=== PATIENT | female | born 1930 | race African-American/Black ===

== ENCOUNTER 2017-04-04 17:37 | Inpatient (IN) | payer MEDICARE, OTHER ==
[~2017-04-04] VITALS: Ht 172.7 cm; Wt 87.3 kg
[~2017-04-04 17:37] MED LIST: AMLO10TA80 PO; ASPI-986 PO; FURO-152 PO; GABA-531 PO; LOSA100T14 PO; LOSA50TA20 PO; PRAV20TA57 PO; SPIR25TA4 PO; TRAM50TA3 PO
[2017-04-04 18:43] LABS: BASOPHILS % 0.3 % (0.0-2.0); EOSINOPHILS % 2.2 % (0.0-5.0); HEMATOCRIT. 35.2 % (36.0-48.0); HEMOGLOBIN. 11.8 g/dL (12.0-16.0); LYMPHOCYTES % 24.6 % (20.0-50.0); MEAN CORPUSCULAR HEMOGLOBIN 28.1 pg (28.0-32.0); MEAN CORPUSCULAR VOLUME 83.9 fL (81.0-99.0); MEAN PLATELET VOLUME 8.1 fl (7.4-10.4); MONOCYTES % 10.7 % (2.0-8.0); NEUTROPHILS % 62.2 % (40.0-76.0); PLATELET 208 x1000/uL (130-400); RED CELL DISTRIBUTION WIDTH 15.1 % (11.6-14.6)
[2017-04-04 18:47] LABS: CHLORIDE 107 mEq/L (98-107)
[2017-04-04 18:48] LABS: INR 1.1; PROTHROMBIN TIME 11.6 sec
[2017-04-04 18:54] LABS: CARBON DIOXIDE 27 mEq/L (21-32)
[2017-04-04 18:58] LABS: TROPONIN I 0.02 ng/mL (0.00-0.04)
[2017-04-04] MEDS ORDERED: ASPIRIN 81MG TABLET PO ONE (19:15)
[2017-04-04] MEDS ORDERED: FUROSEMIDE 40MG/4ML VIAL IV ONE (19:15)
[2017-04-04] MEDS ORDERED: ENOXAPARIN 100MG/ML SYR SUBCUT ONE (19:15)
[2017-04-04] MEDS ORDERED: HYDROCODONE/ACETAMINOPHEN 5/325MG TABLET PO ONE (23:15)
[2017-04-05] MEDS ORDERED: ZOLPIDEM TARTRATE 5MG TABLET PO PRN (01:45)
[2017-04-05] MEDS ORDERED: ACETAMINOPHEN 650MG/20.3ML UDC PO PRN (01:45)
[2017-04-05] MEDS ORDERED: MAGNESIUM HYDROXIDE 400MG/5ML 30ML UDC PO PRN (01:45)
[2017-04-05] MEDS ORDERED: FUROSEMIDE 40MG TABLET PO ONE (03:00)
[2017-04-05] MEDS: AMLODIPINE 10MG TABLET PO SCH (08:47)
[2017-04-05 09:10] LABS: CREATINE KINASE MB FRACTION 1.1 ng/mL (0.5-3.6); TROPONIN I 0.09 ng/mL (0.00-0.04)
[2017-04-05 15:41] LABS: CREATINE KINASE MB FRACTION 1.3 ng/mL (0.5-3.6); TROPONIN I 0.07 ng/mL (0.00-0.04)
[2017-04-05] MEDS ORDERED: ATROPINE SULFATE 1MG/ML VIAL IV PRN (16:30)
[2017-04-05] MEDS: LOSARTAN POTASSIUM 50 MG TABLET PO SCH (21:37)
[2017-04-05 23:09] LABS: CREATINE KINASE MB FRACTION 1.3 ng/mL (0.5-3.6); TROPONIN I 0.06 ng/mL (0.00-0.04)
[2017-04-06 06:24] LABS: BASOPHILS % 0.6 % (0.0-2.0); HEMATOCRIT. 36.2 % (36.0-48.0); LYMPHOCYTES % 28.7 % (20.0-50.0); MEAN CORPUSCULAR HEMOGLOBIN 28.2 pg (28.0-32.0); MEAN PLATELET VOLUME 8.3 fl (7.4-10.4); NEUTROPHILS % 56.7 % (40.0-76.0); PLATELET 180 x1000/uL (130-400); RED BLOOD CELL COUNT 4.26 mill/uL (4.2-5.4); RED CELL DISTRIBUTION WIDTH 15.1 % (11.6-14.6)
[2017-04-06] MEDS: AMLODIPINE 10MG TABLET PO SCH (08:31)
[2017-04-06] MEDS: LOSARTAN POTASSIUM 50 MG TABLET PO SCH ×2 (08:31→20:45)
[2017-04-06] MEDS ORDERED: LIDOCAINE HCL 1% 20ML VIAL (Pyxis) INJ ONE (11:17)
[2017-04-06] MEDS ORDERED: HYDROCORTISONE SOD SUCCINATE 250 MG/2 ML VIAL ONE (11:17)
[2017-04-06] MEDS ORDERED: GENTAMICIN SULF 40MG/ML 2ML VIAL ONE (11:17)
[2017-04-06] MEDS ORDERED: DIPHENHYDRAMINE 50MG/ML VIAL ONE (11:17)
[2017-04-06] MEDS ORDERED: FENTANYL CITRATE/PF 50MCG/ML 2ML VIAL ONE (11:17)
[2017-04-06] MEDS ORDERED: MIDAZOLAM HCL 2 MG/2 ML VIAL ONE (11:17)
[2017-04-06] MEDS ORDERED: FAMOTIDINE 20MG/2ML VIAL IV ONE (11:18)
[2017-04-06] MEDS ORDERED: IOHEXOL-300 100 ML BOTTLE ONE (11:33)
[2017-04-06] MEDS ORDERED: CEFAZOLIN 1000MG PREMIX 100 ML IV ONE (11:38)
[2017-04-06] MEDS: CEFAZOLIN 1000MG PREMIX 50 ML IV SCH (20:45)
[2017-04-06] MEDS: HYDROCODONE/ACETAMINOPHEN 5/325MG TABLET PO PRN (21:29)
[2017-04-07] MEDS: CEFAZOLIN 1000MG PREMIX 50 ML IV SCH (04:10)
[2017-04-07] MEDS: HYDROCODONE/ACETAMINOPHEN 5/325MG TABLET PO PRN (05:50)
[2017-04-07 06:19] LABS: BASOPHILS % 0.2 % (0.0-2.0); EOSINOPHILS % 0.2 % (0.0-5.0); HEMATOCRIT. 35.7 % (36.0-48.0); HEMOGLOBIN. 11.9 g/dL (12.0-16.0); LYMPHOCYTES % 13.7 % (20.0-50.0); MEAN CORPUSCULAR HEMOGLOBIN 28.2 pg (28.0-32.0); MEAN CORPUSCULAR VOLUME 84.6 fL (81.0-99.0); MEAN PLATELET VOLUME 8.9 fl (7.4-10.4); MONOCYTES % 10.9 % (2.0-8.0); PLATELET 186 x1000/uL (130-400); RED BLOOD CELL COUNT 4.22 mill/uL (4.2-5.4)
[2017-04-07] MEDS: LOSARTAN POTASSIUM 50 MG TABLET PO SCH (08:29)
[2017-04-07] MEDS: AMLODIPINE 10MG TABLET PO SCH (08:29)
[2017-04-07] MEDS ORDERED: FUROSEMIDE 20MG TABLET PO SCH (09:00)
[2017-04-07 17:48] VITALS: BP 146/56
[2017-08-10] MEDS ORDERED: POTA20TA82 PO (04:21)
== END 2017-04-07 17:50 | disposition home or self-care (01) | DRG 243 ==
LOC: ER 17:37 → SUPCPDRO 17:39 → 8WST 20:57 → ENRESERV 22:33 → 3WST 04-05 02:20
PROVIDERS: ADMIT Specialist; ATTEND Specialist
PROC: 0JH606Z Insertion of Pacemaker, Dual Chamber into Chest Subcutaneous Tissue and Fascia, Open Approach (ICD-10-PCS; principal; 2017-04-06)
PROC: 02H63JZ Insertion of Pacemaker Lead into Right Atrium, Percutaneous Approach (ICD-10-PCS; 2017-04-06)
PROC: 02HK3JZ Insertion of Pacemaker Lead into Right Ventricle, Percutaneous Approach (ICD-10-PCS; 2017-04-06)
PROC: B5171ZZ Fluoroscopy of Left Subclavian Vein using Low Osmolar Contrast (ICD-10-PCS; 2017-04-06)
DX: I49.5 Sick sinus syndrome (principal); I50.32 Chronic diastolic (congestive) heart failure; I11.0 Hypertensive heart disease with heart failure; F03.90 Unspecified dementia, unspecified severity, without behavioral disturbance, psychotic disturbance, mood disturbance, and anxiety; I50.42 Chronic combined systolic (congestive) and diastolic (congestive) heart failure; I49.3 Ventricular premature depolarization; E66.9 Obesity, unspecified; E78.5 Hyperlipidemia, unspecified; Z82.49 Family history of ischemic heart disease and other diseases of the circulatory system; Z87.891 Personal history of nicotine dependence; Z90.49 Acquired absence of other specified parts of digestive tract; Z90.710 Acquired absence of both cervix and uterus; Z68.29 Body mass index [BMI] 29.0-29.9, adult; Z91.041 Radiographic dye allergy status; Z88.8 Allergy status to other drugs, medicaments and biological substances; Z79.82 Long term (current) use of aspirin; Z79.899 Other long term (current) drug therapy; Z83.3 Family history of diabetes mellitus; I16.0 Hypertensive urgency; I44.0 Atrioventricular block, first degree; Z98.61 Coronary angioplasty status
CPT/HCPCS: 33208; 36415; 71010; 75820; 80048; 80053; 82550; 82553; 83735; 83880; 84443; 84484; 85025; 85610; 93005; 93306; 96374; 97162; 97535; 99291; A4565; C1785; C1892; C1894; C1898; J0690; J1200; J1580; J1650; J1720; J1940; J2250; J3010; J3490; J7050; Q9967

== ENCOUNTER 2017-08-31 08:06 | Inpatient (IN) | payer MEDICARE, OTHER ==
[~2017-08-31] VITALS: Ht 170.2 cm; Wt 82.8 kg
[~2017-08-31 08:06] MED LIST changes: +POTA20TA82 PO
[2017-08-31 08:54] LABS: BASOPHILS % 0.4 % (0.0-2.0); EOSINOPHILS % 1.7 % (0.0-5.0); HEMOGLOBIN. 12.1 g/dL (12.0-16.0); MEAN CORPUSCULAR HEMOGLOBIN 28.7 pg (28.0-32.0); MEAN CORPUSCULAR VOLUME 88.1 fL (81.0-99.0); MEAN PLATELET VOLUME 8.6 fl (7.4-10.4); MONOCYTES % 7.8 % (2.0-8.0); NEUTROPHILS % 67.1 % (40.0-76.0); PLATELET 194 x1000/uL (130-400)
[2017-08-31 09:01] LABS: INR 1.1; PROTHROMBIN TIME 11.8 sec (9.4-11.6)
[2017-08-31 09:10] LABS: CARBON DIOXIDE 28 mEq/L (21-32); CHLORIDE 109 mEq/L (98-107); TROPONIN I 0.03 ng/mL (0.00-0.04)
[2017-08-31] MEDS ORDERED: FUROSEMIDE 40MG/4ML VIAL IVP ONE (10:45)
[2017-08-31 15:17] VITALS: BP 150/83
[2017-08-31 15:29] VITALS: BP 150/83
[2017-08-31] MEDS: NITROGLYCERIN OINT 1GM/INCH UDPKT TD SCH (16:15)
[2017-08-31] MEDS: POTASSIUM CHLORIDE 20MEQ TABLET SR PO SCH (16:15)
[2017-08-31] MEDS: FUROSEMIDE 40MG/4ML VIAL IVP SCH (16:15)
[2017-08-31] MEDS ORDERED: MAGNESIUM HYDROXIDE 400MG/5ML 30ML UDC PO PRN (18:00)
[2017-08-31] MEDS ORDERED: ZOLPIDEM TARTRATE 5MG TABLET PO PRN (18:00)
[2017-08-31 20:00] VITALS: BP 145/88
[2017-08-31] MEDS: ENOXAPARIN 40MG/0.4ML SYR SUBCUT SCH ×2 (21:00→21:10)
[2017-08-31] MEDS: ATORVASTATIN CALCIUM 10MG TABLET PO SCH (21:09)
[2017-08-31] MEDS: AMLODIPINE 5MG TABLET PO SCH (21:10)
[2017-09-01] VITALS (8 sets, daily range): BP systolic 95–146; BP diastolic 51–91
[2017-09-01] MEDS: NITROGLYCERIN OINT 1GM/INCH UDPKT TD SCH ×4 (02:01→23:41)
[2017-09-01] MEDS: TRAMADOL 50MG TABLET PO PRN ×2 (02:45→14:10)
[2017-09-01 06:12] LABS: BASOPHILS % 0.6 % (0.0-2.0); HEMATOCRIT. 37.3 % (36.0-48.0); HEMOGLOBIN. 12.5 g/dL (12.0-16.0); LYMPHOCYTES % 27.2 % (20.0-50.0); MEAN CORPUSCULAR HEMOGLOBIN 29.3 pg (28.0-32.0); MEAN CORPUSCULAR VOLUME 87.3 fL (81.0-99.0); MEAN PLATELET VOLUME 8.6 fl (7.4-10.4); MONOCYTES % 9.8 % (2.0-8.0); NEUTROPHILS % 60.4 % (40.0-76.0); PLATELET 187 x1000/uL (130-400); RED BLOOD CELL COUNT 4.27 mill/uL (4.2-5.4); RED CELL DISTRIBUTION WIDTH 14.7 % (11.6-14.6)
[2017-09-01 07:14] LABS: CARBON DIOXIDE 27 mEq/L (21-32); CHLORIDE 107 mEq/L (98-107); TROPONIN I 0.04 ng/mL (0.00-0.04)
[2017-09-01] MEDS ORDERED: POTASSIUM CHLORIDE 20MEQ TABLET SR PO SCH (08:00)
[2017-09-01] MEDS ORDERED: ENOXAPARIN 30MG/0.3ML SYR SUBCUT SCH (09:00)
[2017-09-01] MEDS ORDERED: POTASSIUM CHLORIDE INJ 20 MEQ in DEXT 5% WATER 100 ML IV NR (09:00)
[2017-09-01] MEDS: PANTOPRAZOLE SODIUM 40 MG/VIAL IV SCH (09:31)
[2017-09-01] MEDS: LOSARTAN POTASSIUM 50 MG TABLET PO SCH (09:31)
[2017-09-01] MEDS: POTASSIUM CHLORIDE 20MEQ TABLET SR PO SCH ×2 (09:32→17:58)
[2017-09-01] MEDS: ASPIRIN 81MG EC TABLET PO SCH (09:32)
[2017-09-01] MEDS: AMLODIPINE 5MG TABLET PO SCH ×2 (09:32→21:00)
[2017-09-01] MEDS: SPIRONOLACTONE 25MG TABLET PO SCH (09:32)
[2017-09-01] MEDS: FUROSEMIDE 40MG/4ML VIAL IVP SCH ×2 (09:32→17:56)
[2017-09-01] MEDS: GABAPENTIN 300MG CAPSULE PO SCH ×2 (09:52→17:57)
[2017-09-01] MEDS ORDERED: HEPARIN SODIUM 1,000 UNIT/1ML VIAL IV ONE (10:19)
[2017-09-01] MEDS ORDERED: NICARDIPINE 100MCG/ML 10ML VIAL (CATH LAB) IV ONE (10:19)
[2017-09-01] MEDS ORDERED: NITROGLYCERIN 50MCG/ML 10ML VIAL (CATH LAB) IV ONE (10:19)
[2017-09-01] MEDS ORDERED: HEPARIN 1,000 UNITS PREMIX 0 ML IV ONE (12:06)
[2017-09-01] MEDS ORDERED: IODIXANOL 320MG/ML 100 ML BOTTLE IV ONE (14:47)
[2017-09-01] MEDS ORDERED: FENTANYL CITRATE/PF 50MCG/ML 2ML VIAL ONE (14:48)
[2017-09-01] MEDS ORDERED: MIDAZOLAM HCL 2 MG/2 ML VIAL ONE (14:48)
[2017-09-01] MEDS ORDERED: DIPHENHYDRAMINE 50MG/ML VIAL ONE (14:55)
[2017-09-01] MEDS ORDERED: FAMOTIDINE 20MG/2ML VIAL IV ONE (14:58)
[2017-09-01] MEDS ORDERED: HYDROCORTISONE SOD SUCCINATE 250 MG/2 ML VIAL ONE (15:00)
[2017-09-01] MEDS ORDERED: ATROPINE SULFATE 1MG/10ML SYR IV PRN (15:45)
[2017-09-01] MEDS ORDERED: ACETAMINOPHEN 325MG TABLET PO PRN (15:45)
[2017-09-01] MEDS: ACETAMINOPHEN 325MG TABLET PO PRN ×2 (18:03→23:41)
[2017-09-01] MEDS ORDERED: ONDANSETRON HCL 4MG/2ML VIAL IV PRN (20:15)
[2017-09-01] MEDS: ENOXAPARIN 40MG/0.4ML SYR SUBCUT SCH (22:15)
[2017-09-01] MEDS: ATORVASTATIN CALCIUM 10MG TABLET PO SCH (22:15)
[2017-09-02] VITALS (11 sets, daily range): BP systolic 94–133; BP diastolic 38–73
[2017-09-02 06:25] LABS: BASOPHILS % 0.1 % (0.0-2.0); HEMATOCRIT. 43.2 % (36.0-48.0); HEMOGLOBIN. 14.5 g/dL (12.0-16.0); LYMPHOCYTES % 9.3 % (20.0-50.0); MEAN CORPUSCULAR HEMOGLOBIN 29.5 pg (28.0-32.0); MEAN CORPUSCULAR VOLUME 87.9 fL (81.0-99.0); MEAN PLATELET VOLUME 9.2 fl (7.4-10.4); MONOCYTES % 5.6 % (2.0-8.0); PLATELET 225 x1000/uL (130-400); RED BLOOD CELL COUNT 4.91 mill/uL (4.2-5.4); RED CELL DISTRIBUTION WIDTH 14.7 % (11.6-14.6)
[2017-09-02] MEDS: PANTOPRAZOLE SODIUM 40 MG/VIAL IV SCH (08:50)
[2017-09-02] MEDS: FUROSEMIDE 40MG/4ML VIAL IVP SCH (08:50)
[2017-09-02] MEDS: GABAPENTIN 300MG CAPSULE PO SCH ×2 (08:50→17:48)
[2017-09-02] MEDS: POTASSIUM CHLORIDE 20MEQ TABLET SR PO SCH (08:50)
[2017-09-02] MEDS: ASPIRIN 81MG EC TABLET PO SCH (08:51)
[2017-09-02] MEDS ORDERED: POTASSIUM CHLORIDE 20MEQ TABLET SR PO SCH (09:00)
[2017-09-02] MEDS: SPIRONOLACTONE 25MG TABLET PO SCH (09:01)
[2017-09-02] MEDS: AMLODIPINE 5MG TABLET PO SCH (13:55)
[2017-09-02] MEDS: LOSARTAN POTASSIUM 50 MG TABLET PO SCH (13:55)
[2017-09-02] MEDS: NITROGLYCERIN OINT 1GM/INCH UDPKT TD SCH (13:56)
[2017-09-02] MEDS: ENOXAPARIN 40MG/0.4ML SYR SUBCUT SCH (21:28)
[2017-09-02] MEDS: ATORVASTATIN CALCIUM 10MG TABLET PO SCH (21:28)
[2017-09-02 21:29] LABS: BG CARBOXYHEMOGLOBIN 0.3 % (0.5-1.5); BG DEOXYHEMOGLOBIN 1.9 % (0.0-5.0); BG FRACTION INSPIRED OXYGEN 28; BG HCO3 ACT 22.8 mmol/L (22.0-26.0); BG METHEMOGLOBIN 0.4 % (0.0-1.5); BG OXYGEN SATURATION 98.1 % (92.0-98.5); BG OXYHEMOGLOBIN 97.4 % (94.0-97.0); BG PCO2 39.3 mmHg (35.0-45.0); BG PH 7.382 (7.350-7.450); BG PO2 118.3 mmHg (75.0-100.0); BG SAMPLE SITE RIGHT RADIAL; BG TOTAL HEMOGLOBIN 12.3 g/dL (12.0-18.0); BG VENT MODE NASAL CANNULA
[2017-09-02] MEDS: ACETAMINOPHEN 325MG TABLET PO PRN (22:39)
[2017-09-03] VITALS (13 sets, daily range): BP systolic 91–131; BP diastolic 41–84
[2017-09-03 07:15] LABS: CLARITY URINE CLEAR (CLEAR); COLOR URINE YELLOW (YELLOW); KETONES URINE NEGATIVE (NEGATIVE); LEUKOCYTE ESTERASE URINE TRACE (NEGATIVE); NITRITE URINE NEGATIVE (NEGATIVE); OCCULT BLOOD URINE NEGATIVE (NEGATIVE); PROTEIN URINE NEGATIVE (NEGATIVE); SPECIFIC GRAVITY URINE 1.018 (1.005-1.030); UROBILINOGEN URINE 0.2 E.U./dL (0.2-1.0)
[2017-09-03 07:19] LABS: BASOPHILS % 0.3 % (0.0-2.0); EOSINOPHILS % 1.4 % (0.0-5.0); HEMATOCRIT. 38.1 % (36.0-48.0); HEMOGLOBIN. 12.9 g/dL (12.0-16.0); LYMPHOCYTES % 33.6 % (20.0-50.0); MEAN CORPUSCULAR HEMOGLOBIN 29.4 pg (28.0-32.0); MEAN CORPUSCULAR VOLUME 87.1 fL (81.0-99.0); MEAN PLATELET VOLUME 8.9 fl (7.4-10.4); MONOCYTES % 8.6 % (2.0-8.0); NEUTROPHILS % 56.1 % (40.0-76.0); PLATELET 198 x1000/uL (130-400); RED BLOOD CELL COUNT 4.38 mill/uL (4.2-5.4); RED CELL DISTRIBUTION WIDTH 14.9 % (11.6-14.6)
[2017-09-03] MEDS ORDERED: MORPHINE SULFATE 2 MG/ML CPJ (NOT FOR IM USE) IV NR (07:50)
[2017-09-03] MEDS: NITROGLYCERIN OINT 1GM/INCH UDPKT TD SCH ×3 (08:00→19:22)
[2017-09-03] MEDS: ASPIRIN 81MG EC TABLET PO SCH (08:23)
[2017-09-03] MEDS: GABAPENTIN 300MG CAPSULE PO SCH ×2 (08:23→17:42)
[2017-09-03] MEDS ORDERED: SODIUM CHLORIDE 0.9% 500 ML IV ONE (10:35)
[2017-09-03] MEDS: ENOXAPARIN 40MG/0.4ML SYR SUBCUT SCH (20:52)
[2017-09-03] MEDS: ATORVASTATIN CALCIUM 10MG TABLET PO SCH (20:52)
[2017-09-04] VITALS (10 sets, daily range): BP systolic 98–135; BP diastolic 44–93
[2017-09-04 06:52] LABS: BASOPHILS % 0.6 % (0.0-2.0); EOSINOPHILS % 1.6 % (0.0-5.0); HEMATOCRIT. 39.7 % (36.0-48.0); HEMOGLOBIN. 13.4 g/dL (12.0-16.0); LYMPHOCYTES % 35.8 % (20.0-50.0); MEAN CORPUSCULAR HEMOGLOBIN 29.6 pg (28.0-32.0); MEAN CORPUSCULAR VOLUME 87.9 fL (81.0-99.0); MEAN PLATELET VOLUME 9.7 fl (7.4-10.4); MONOCYTES % 6.6 % (2.0-8.0); NEUTROPHILS % 55.4 % (40.0-76.0); PLATELET 131 x1000/uL (130-400); RED BLOOD CELL COUNT 4.52 mill/uL (4.2-5.4); RED CELL DISTRIBUTION WIDTH 14.9 % (11.6-14.6)
[2017-09-04 07:30] LABS: PHOSPHORUS 3.3 mg/dL (2.5-4.9)
[2017-09-04] MEDS ORDERED: SODIUM CHLORIDE 0.9% 10ML VIAL ONE (07:38)
[2017-09-04] MEDS: GABAPENTIN 300MG CAPSULE PO SCH ×2 (08:21→16:16)
[2017-09-04] MEDS: ASPIRIN 81MG EC TABLET PO SCH (08:21)
[2017-09-04] MEDS: NITROGLYCERIN OINT 1GM/INCH UDPKT TD SCH ×3 (08:21→16:17)
[2017-09-04] MEDS: NITROGLYCERIN 0.4MG TABLET SL SL PRN ×2 (12:43→13:04)
[2017-09-04] MEDS: TRAMADOL 50MG TABLET PO PRN (14:41)
[2017-09-04] MEDS: ACETAMINOPHEN 325MG TABLET PO PRN (16:27)
[2017-09-04] MEDS: ATORVASTATIN CALCIUM 10MG TABLET PO SCH (21:02)
[2017-09-06 05:22] LABS: COMPLEMENT C3 109 mg/dL (82-167)
== END 2017-09-04 21:25 | disposition home health service (06) | DRG 286 ==
LOC: ER 08:13 → 7WST 11:54 → ENRESERV 13:00 → 3WST 09-01 15:41
PROVIDERS: ADMIT Specialist; ATTEND Specialist
PROC: 4A023N7 Measurement of Cardiac Sampling and Pressure, Left Heart, Percutaneous Approach (ICD-10-PCS; principal; 2017-09-01)
PROC: B2111ZZ Fluoroscopy of Multiple Coronary Arteries using Low Osmolar Contrast (ICD-10-PCS; 2017-09-01)
DX: I13.0 Hypertensive heart and chronic kidney disease with heart failure and stage 1 through stage 4 chronic kidney disease, or unspecified chronic kidney disease (principal); J96.91 Respiratory failure, unspecified with hypoxia; N17.0 Acute kidney failure with tubular necrosis; I50.23 Acute on chronic systolic (congestive) heart failure; E87.1 Hypo-osmolality and hyponatremia; I42.9 Cardiomyopathy, unspecified; E87.6 Hypokalemia; I27.20 Pulmonary hypertension, unspecified; I25.5 Ischemic cardiomyopathy; N18.3 Chronic kidney disease, stage 3 (moderate); I34.0 Nonrheumatic mitral (valve) insufficiency; E78.5 Hyperlipidemia, unspecified; R07.1 Chest pain on breathing; I25.10 Atherosclerotic heart disease of native coronary artery without angina pectoris; I25.2 Old myocardial infarction; Z82.49 Family history of ischemic heart disease and other diseases of the circulatory system; Z87.891 Personal history of nicotine dependence; Z90.49 Acquired absence of other specified parts of digestive tract; Z90.710 Acquired absence of both cervix and uterus; Z95.0 Presence of cardiac pacemaker; Z88.8 Allergy status to other drugs, medicaments and biological substances; Z91.041 Radiographic dye allergy status; Z79.82 Long term (current) use of aspirin; Z79.899 Other long term (current) drug therapy
CPT/HCPCS: 36415; 36600; 71010; 71250; 74176; 76770; 78582; 80048; 80053; 81001; 82375; 82550; 82570; 82805; 83735; 83880; 83930; 83935; 84100; 84134; 84484; 84540; 85025; 85379; 85610; 86160; 93005; 93306; 93458; 96374; 97162; 99285; A4216; A9558; C1769; C1887; C1893; C9113; J1200; J1644; J1650; J1720; J1940; J2250; J2270; J3010; J3480; J3490; J7040; J7060; Q9967

== ENCOUNTER 2018-08-21 12:37 | Emergency (ER) | payer MEDICARE, MEDICAID ==
[~2018-08-21] VITALS: Ht 167.6 cm; Wt 80.0 kg
[~2018-08-21 12:37] MED LIST changes: -AMLO10TA80 PO; -ASPI-986 PO; -FURO-152 PO; -GABA-531 PO; -LOSA100T14 PO; -POTA20TA82 PO; -PRAV20TA57 PO; -SPIR25TA4 PO; -TRAM50TA3 PO
[2018-08-21 17:06] VITALS: BP 175/86
== END 2018-08-21 17:06 | disposition home or self-care (01) ==
LOC: ER 13:58
DX: S93.401A Sprain of unspecified ligament of right ankle, initial encounter (principal); I11.0 Hypertensive heart disease with heart failure; I50.9 Heart failure, unspecified; E78.00 Pure hypercholesterolemia, unspecified; I25.2 Old myocardial infarction; Z90.49 Acquired absence of other specified parts of digestive tract; Z90.710 Acquired absence of both cervix and uterus; Z98.890 Other specified postprocedural states; Z88.8 Allergy status to other drugs, medicaments and biological substances; Z91.041 Radiographic dye allergy status; W06.XXXA Fall from bed, initial encounter; Y93.89 Activity, other specified; Y92.89 Other specified places as the place of occurrence of the external cause; Y99.8 Other external cause status
CPT/HCPCS: 73610; 99283

== ENCOUNTER 2019-03-12 14:37 | Inpatient (IN) | payer MEDICARE, MEDICAID ==
[~2019-03-12] VITALS: Ht 162.6 cm; Wt 108.4 kg
[~2019-03-12 14:37] MED LIST changes: -LOSA50TA20 PO; +LOSA50TA41 PO
[2019-03-12] MEDS ORDERED: ONDANSETRON HCL 4MG/2ML INJ IV STA (15:57)
[2019-03-12] MEDS ORDERED: MORPHINE SULFATE 4 MG/ML CPJ (NOT FOR IM USE) IV STA (15:57)
[2019-03-12] MEDS ORDERED: VANCOMYCIN 1 G PREMIX 200 ML IV ONE (16:00)
[2019-03-12] MEDS ORDERED: SODIUM CHLORIDE 0.9% 1000ML BAG (SEPSIS BOLUS) IV ONE (16:00)
[2019-03-12] MEDS ORDERED: PIPERACILLIN/TAZ 3.375G PREMIX 50 ML IV ONE (16:00)
[2019-03-12 18:15] LABS: BASOPHILS % 0.2 % (0.0-2.0); HEMATOCRIT. 31.1 % (36.0-48.0); HEMOGLOBIN. 10.4 g/dL (12.0-16.0); LYMPHOCYTES % 13.8 % (20.0-50.0); MEAN CORPUSCULAR HEMOGLOBIN 29.7 pg (28.0-32.0); MEAN PLATELET VOLUME 7.8 fl (7.4-10.4); PLATELET 248 x1000/uL (130-400); RED BLOOD CELL COUNT 3.49 mill/uL (4.2-5.4); RED CELL DISTRIBUTION WIDTH 14.3 % (11.6-14.6)
[2019-03-12 18:23] LABS: CHLORIDE 101 mEq/L (98-107); INR 1.2; PROTHROMBIN TIME 12.2 sec (9.6-11.0)
[2019-03-12 22:00] VITALS: BP 126/72
[2019-03-13] VITALS: BP 138/48
[2019-03-13] MEDS ORDERED: NON FORMULARY PATIENT HOME MED XX SCH (00:15)
[2019-03-13] MEDS ORDERED: FURO-151 MT (00:37)
[2019-03-13] MEDS ORDERED: MULT-1146 MT (00:37)
[2019-03-13] MEDS ORDERED: OLME20TA13 MT (00:37)
[2019-03-13] MEDS ORDERED: POTA-79 MT (00:37)
[2019-03-13] MEDS ORDERED: NITR0.4T49 SL (00:37)
[2019-03-13] MEDS ORDERED: LISI-186 MT (00:37)
[2019-03-13] MEDS ORDERED: TRAM50TA3 MT (00:37)
[2019-03-13] MEDS ORDERED: SIMV20TA6 MT (00:37)
[2019-03-13] MEDS ORDERED: ASCO-339 MT (00:37)
[2019-03-13] MEDS ORDERED: APIX5TAB MT (00:37)
[2019-03-13] MEDS ORDERED: GABA-290 MT (00:37)
[2019-03-13] MEDS ORDERED: FLUT9.9S BOTHNSTRLS (00:37)
[2019-03-13] MEDS ORDERED: ACET-2178 PO (00:37)
[2019-03-13] MEDS ORDERED: MOM PO (00:37)
[2019-03-13] MEDS ORDERED: METO2.5T14 PO (00:37)
[2019-03-13] MEDS ORDERED: PIPERACILLIN/TAZ 3.375G PREMIX 50 ML IV SCH (01:00)
[2019-03-13] MEDS: TRAMADOL 50MG TABLET PO PRN ×2 (01:56→09:15)
[2019-03-13 04:00] VITALS: BP 112/54
[2019-03-13] MEDS: PIPERACILLIN/TAZ 2.25G PREMIX 50 ML IV SCH ×5 (04:28→20:55)
[2019-03-13 06:30] LABS: BASOPHILS % 0.3 % (0.0-2.0); EOSINOPHILS % 1.6 % (0.0-5.0); HEMATOCRIT. 27.8 % (36.0-48.0); HEMOGLOBIN. 9.5 g/dL (12.0-16.0); LYMPHOCYTES % 19.6 % (20.0-50.0); MEAN CORPUSCULAR HEMOGLOBIN 30.1 pg (28.0-32.0); MEAN CORPUSCULAR VOLUME 88.1 fL (81.0-99.0); MEAN PLATELET VOLUME 7.9 fl (7.4-10.4); MONOCYTES % 11.7 % (2.0-8.0); NEUTROPHILS % 66.8 % (40.0-76.0); PLATELET 227 x1000/uL (130-400); RED BLOOD CELL COUNT 3.15 mill/uL (4.2-5.4); RED CELL DISTRIBUTION WIDTH 13.9 % (11.6-14.6)
[2019-03-13] MEDS ORDERED: OLMESARTAN MEDOXOMIL MT SCH (09:00)
[2019-03-13] MEDS: GABAPENTIN 300MG CAPSULE PO SCH ×3 (09:15→16:46)
[2019-03-13] MEDS: LOSARTAN POTASSIUM 100 MG TABLET PO SCH (09:15)
[2019-03-13] MEDS: MULTIVITAMINS,THER W-MINERALS TABLET PO SCH (09:15)
[2019-03-13] MEDS: APIXABAN 2.5 MG TABLET PO SCH ×2 (09:16→16:45)
[2019-03-13] MEDS: ASCORBIC ACID 500 MG TABLET PO SCH ×2 (09:16→16:45)
[2019-03-13] MEDS ORDERED: POTASSIUM CHLORIDE 20MEQ TABLET SR PO NR (10:45)
[2019-03-13 12:00] VITALS: BP 137/43
[2019-03-13] MEDS ORDERED: FUROSEMIDE 40MG/4ML VIAL IVP SCH (16:15)
[2019-03-13 20:00] VITALS: BP 114/68
[2019-03-13] MEDS: ATORVASTATIN CALCIUM 10MG TABLET PO SCH (20:55)
[2019-03-13 23:00] VITALS: BP_SYST 123; BP_SYST 187; BP_DIAS 57; BP_DIAS 59
[2019-03-14 00:09] LABS: CLARITY URINE CLEAR (CLEAR); COLOR URINE YELLOW (YELLOW); KETONES URINE NEGATIVE (NEGATIVE); LEUKOCYTE ESTERASE URINE NEGATIVE (NEGATIVE); NITRITE URINE NEGATIVE (NEGATIVE); OCCULT BLOOD URINE NEGATIVE (NEGATIVE); PH URINE 5.5 (4.5-8.0); PROTEIN URINE NEGATIVE (NEGATIVE); SPECIFIC GRAVITY URINE 1.013 (1.005-1.030)
[2019-03-14] MEDS: PIPERACILLIN/TAZ 2.25G PREMIX 50 ML IV SCH ×3 (03:06→15:30)
[2019-03-14 04:00] VITALS: BP 140/45
[2019-03-14 06:42] LABS: HEMATOCRIT. 30.9 % (36.0-48.0); HEMOGLOBIN. 10.4 g/dL (12.0-16.0); MEAN PLATELET VOLUME 8.1 fl (7.4-10.4); PLATELET 250 x1000/uL (130-400); RED BLOOD CELL COUNT 3.47 mill/uL (4.2-5.4); RED CELL DISTRIBUTION WIDTH 13.9 % (11.6-14.6)
[2019-03-14 06:56] LABS: T4 FREE 1.3 ng/dL (0.76-1.46)
[2019-03-14 08:00] VITALS: BP 127/61
[2019-03-14] MEDS: APIXABAN 2.5 MG TABLET PO SCH ×2 (10:23→17:28)
[2019-03-14] MEDS: LOSARTAN POTASSIUM 100 MG TABLET PO SCH (10:24)
[2019-03-14] MEDS: ASCORBIC ACID 500 MG TABLET PO SCH ×2 (10:24→17:28)
[2019-03-14] MEDS: GABAPENTIN 300MG CAPSULE PO SCH ×3 (10:24→17:28)
[2019-03-14] MEDS: MULTIVITAMINS,THER W-MINERALS TABLET PO SCH (10:24)
[2019-03-14] MEDS: TRAMADOL 50MG TABLET PO PRN (10:40)
[2019-03-14 11:59] VITALS: BP 118/41
[2019-03-14 16:11] VITALS: BP 118/61
[2019-03-14] MEDS ORDERED: LEVOFLOXACIN 500MG TABLET PO NR (16:15)
[2019-03-14] MEDS ORDERED: FLUT9.9S16 NS (16:30)
[2019-03-14] MEDS ORDERED: ZINC220T PO (16:30)
[2019-03-14 18:00] LABS: PLATELET ESTIMATE NORMAL
[2019-03-14 20:00] VITALS: BP 112/51
[2019-03-14] MEDS: ATORVASTATIN CALCIUM 10MG TABLET PO SCH (21:12)
[2019-03-15] VITALS (7 sets, daily range): BP systolic 112–148; BP diastolic 49–72
[2019-03-15] MEDS: GABAPENTIN 300MG CAPSULE PO SCH ×3 (10:31→17:28)
[2019-03-15] MEDS: ASCORBIC ACID 500 MG TABLET PO SCH ×2 (10:31→17:28)
[2019-03-15] MEDS: MULTIVITAMINS,THER W-MINERALS TABLET PO SCH (10:31)
[2019-03-15] MEDS: APIXABAN 2.5 MG TABLET PO SCH ×2 (10:31→17:28)
[2019-03-15] MEDS: LOSARTAN POTASSIUM 100 MG TABLET PO SCH (10:31)
[2019-03-15] MEDS: LEVOFLOXACIN 250MG TABLET PO SCH (13:29)
[2019-03-15] MEDS: ATORVASTATIN CALCIUM 10MG TABLET PO SCH (21:33)
[2019-03-16] VITALS: BP 112/55
[2019-03-16 04:00] VITALS: BP 133/58
[2019-03-16 08:00] VITALS: BP 158/73
[2019-03-16] MEDS: APIXABAN 2.5 MG TABLET PO SCH ×2 (08:52→16:31)
[2019-03-16] MEDS: MULTIVITAMINS,THER W-MINERALS TABLET PO SCH (08:52)
[2019-03-16] MEDS: ASCORBIC ACID 500 MG TABLET PO SCH ×2 (08:52→16:31)
[2019-03-16] MEDS: GABAPENTIN 300MG CAPSULE PO SCH ×3 (08:52→16:31)
[2019-03-16] MEDS: LOSARTAN POTASSIUM 100 MG TABLET PO SCH (09:01)
[2019-03-16] MEDS: LEVOFLOXACIN 250MG TABLET PO SCH (11:08)
[2019-03-16 16:00] VITALS: BP 133/57
[2019-03-16 20:00] VITALS: BP 149/75
[2019-03-16] MEDS: ATORVASTATIN CALCIUM 10MG TABLET PO SCH (21:31)
[2019-03-16] MEDS: HYDROCODONE/ACETAMINOPHEN 5/325MG TABLET PO PRN (23:21)
[2019-03-17 04:00] VITALS: BP 151/68
[2019-03-17] MEDS: GABAPENTIN 300MG CAPSULE PO SCH ×3 (09:40→18:38)
[2019-03-17] MEDS: APIXABAN 2.5 MG TABLET PO SCH ×2 (09:40→18:39)
[2019-03-17] MEDS: ASCORBIC ACID 500 MG TABLET PO SCH ×2 (09:40→18:39)
[2019-03-17] MEDS: LOSARTAN POTASSIUM 100 MG TABLET PO SCH (09:40)
[2019-03-17] MEDS: MULTIVITAMINS,THER W-MINERALS TABLET PO SCH (09:40)
[2019-03-17] MEDS: LEVOFLOXACIN 250MG TABLET PO SCH (11:49)
[2019-03-17 12:00] VITALS: BP 132/61
[2019-03-17 16:00] VITALS: BP 139/43
[2019-03-17 16:39] LABS: BASOPHILS % 0.5 % (0.0-2.0); EOSINOPHILS % 3.2 % (0.0-5.0); HEMATOCRIT. 32.3 % (36.0-48.0); HEMOGLOBIN. 10.8 g/dL (12.0-16.0); LYMPHOCYTES % 23.5 % (20.0-50.0); MEAN CORPUSCULAR HEMOGLOBIN 29.4 pg (28.0-32.0); MEAN CORPUSCULAR VOLUME 87.5 fL (81.0-99.0); MEAN PLATELET VOLUME 7.3 fl (7.4-10.4); MONOCYTES % 8.9 % (2.0-8.0); NEUTROPHILS % 63.9 % (40.0-76.0); PLATELET 291 x1000/uL (130-400); RED BLOOD CELL COUNT 3.69 mill/uL (4.2-5.4); RED CELL DISTRIBUTION WIDTH 14.2 % (11.6-14.6)
[2019-03-17 20:00] VITALS: BP 148/64
[2019-03-17] MEDS: ATORVASTATIN CALCIUM 10MG TABLET PO SCH (20:05)
[2019-03-18] VITALS: BP 144/50
[2019-03-18 04:00] VITALS: BP 134/50
[2019-03-18 08:00] VITALS: BP 132/45
[2019-03-18] MEDS: APIXABAN 2.5 MG TABLET PO SCH ×2 (08:55→16:15)
[2019-03-18] MEDS: MULTIVITAMINS,THER W-MINERALS TABLET PO SCH (08:55)
[2019-03-18] MEDS: ASCORBIC ACID 500 MG TABLET PO SCH ×2 (08:55→16:15)
[2019-03-18] MEDS: GABAPENTIN 300MG CAPSULE PO SCH ×3 (08:55→16:15)
[2019-03-18] MEDS: LOSARTAN POTASSIUM 100 MG TABLET PO SCH (08:55)
[2019-03-18] MEDS: LEVOFLOXACIN 250MG TABLET PO SCH (10:20)
[2019-03-18 12:00] VITALS: BP 135/56
[2019-03-18 16:00] VITALS: BP 119/74
[2019-03-18 20:00] VITALS: BP 106/67
[2019-03-18] MEDS: ATORVASTATIN CALCIUM 10MG TABLET PO SCH (20:07)
[2019-03-19] VITALS: BP 133/56
[2019-03-19] MEDS: HYDROCODONE/ACETAMINOPHEN 5/325MG TABLET PO PRN (00:22)
[2019-03-19 04:00] VITALS: BP 139/53
[2019-03-19 07:35] LABS: HEMATOCRIT 29.4 % (36.0-48.0); HEMOGLOBIN 10.1 g/dL (12.0-16.0); MEAN CORPUSCULAR VOLUME 87.8 fL (81.0-99.0); PLATELET 251 x1000/uL (130-400); RED BLOOD CELL COUNT 3.35 mill/uL (4.2-5.4)
[2019-03-19 08:30] VITALS: BP 142/56
[2019-03-19] MEDS: LOSARTAN POTASSIUM 100 MG TABLET PO SCH (08:52)
[2019-03-19] MEDS: GABAPENTIN 300MG CAPSULE PO SCH ×2 (08:52→12:03)
[2019-03-19] MEDS: ASCORBIC ACID 500 MG TABLET PO SCH (08:52)
[2019-03-19] MEDS: MULTIVITAMINS,THER W-MINERALS TABLET PO SCH (08:53)
[2019-03-19] MEDS: APIXABAN 2.5 MG TABLET PO SCH (08:53)
[2019-03-19] MEDS: LEVOFLOXACIN 250MG TABLET PO SCH (10:47)
[2019-03-19 11:31] VITALS: BP 147/66
[2019-03-19 12:43] VITALS: BP 147/61
[2019-03-19 15:51] VITALS: BP 142/57
== END 2019-03-19 16:40 | DRG 602 ==
LOC: ER 14:37 → 6EST 18:52 → ENRESERV 19:22
PROVIDERS: ADMIT Ophthalmology; ATTEND Ophthalmology
DX: L03.116 Cellulitis of left lower limb (principal); I50.43 Acute on chronic combined systolic (congestive) and diastolic (congestive) heart failure; N39.0 Urinary tract infection, site not specified; I13.0 Hypertensive heart and chronic kidney disease with heart failure and stage 1 through stage 4 chronic kidney disease, or unspecified chronic kidney disease; D68.59 Other primary thrombophilia; E66.2 Morbid (severe) obesity with alveolar hypoventilation; I42.9 Cardiomyopathy, unspecified; Z68.41 Body mass index [BMI] 40.0-44.9, adult; D64.9 Anemia, unspecified; E78.5 Hyperlipidemia, unspecified; E87.6 Hypokalemia; K80.20 Calculus of gallbladder without cholecystitis without obstruction; M19.90 Unspecified osteoarthritis, unspecified site; N18.9 Chronic kidney disease, unspecified; E78.00 Pure hypercholesterolemia, unspecified; F03.90 Unspecified dementia, unspecified severity, without behavioral disturbance, psychotic disturbance, mood disturbance, and anxiety; Z90.49 Acquired absence of other specified parts of digestive tract; Z90.710 Acquired absence of both cervix and uterus; W18.39XA Other fall on same level, initial encounter; I25.2 Old myocardial infarction; Z91.81 History of falling; Y93.89 Activity, other specified; Y92.89 Other specified places as the place of occurrence of the external cause; Y99.8 Other external cause status; Z95.0 Presence of cardiac pacemaker
CPT/HCPCS: 36415; 71045; 73560; 73590; 73610; 73630; 76770; 80048; 80061; 83605; 83880; 84145; 84439; 84443; 84484; 85027; 93005; 93306; 93970; 97162; 99285; J1940; J2270; J2405; J2543; J3370; J7030

== ENCOUNTER 2021-02-25 16:34 | Inpatient (IN) | payer MEDICARE, MEDICAID ==
[~2021-02-25] VITALS: Ht 172.7 cm; Wt 84.9 kg
[~2021-02-25 16:34] MED LIST changes: +APIX5TAB MT; +ASCO-339 MT; +FLUT9.9S16 NS; +FURO-151 MT; +GABA-290 MT; +LISI-186 MT; -LOSA50TA41 PO; +METO2.5T2 PO; +MOM PO; +MULT-1146 MT; +NITR0.4T49 SL; +OLME20TA13 MT; +POTA-79 MT; +SIMV-43 MT; +TOPUD PO; +TRAM50TA3 MT; +ZINC220T4 PO
[2021-02-25] MEDS ORDERED: FUROSEMIDE 20MG/2ML VIAL IVP ONE (17:15)
[2021-02-25 17:26] LABS: BASOPHILS % 0.5 % (0.0-2.0); EOSINOPHILS % 2.7 % (0.0-5.0); HEMATOCRIT. 31.9 % (36.0-48.0); HEMOGLOBIN. 10.3 g/dL (12.0-16.0); LYMPHOCYTES % 19.6 % (20.0-50.0); MEAN CORPUSCULAR HEMOGLOBIN 28.2 pg (28.0-32.0); MEAN CORPUSCULAR VOLUME 87.5 fL (81.0-99.0); MONOCYTES % 11.4 % (2.0-8.0); NEUTROPHILS % 65.8 % (40.0-76.0); RED BLOOD CELL COUNT 3.65 mill/uL (4.2-5.4); RED CELL DISTRIBUTION WIDTH 16.1 % (11.6-14.6)
[2021-02-25 17:31] LABS: CHLORIDE 107 mEq/L (98-107)
[2021-02-25 23:46] VITALS: BP 138/70
[2021-02-26] VITALS (8 sets, daily range): BP systolic 91–139; BP diastolic 43–77
[2021-02-26] MEDS: MORPHINE SULFATE 2 MG/ML CPJ (NOT FOR IM USE) IV PRN ×2 (03:40→15:21)
[2021-02-26] MEDS: GABAPENTIN 300MG CAPSULE PO SCH ×3 (06:12→21:34)
[2021-02-26] MEDS: FUROSEMIDE 40MG/4ML VIAL IVP SCH ×2 (06:12→16:45)
[2021-02-26] MEDS: MULTIVITAMINS,THER W-MINERALS TABLET PO SCH (08:34)
[2021-02-26] MEDS: LOSARTAN POTASSIUM 100 MG TABLET PO SCH (08:35)
[2021-02-26] MEDS: METOLAZONE 2.5MG TABLET PO SCH (08:35)
[2021-02-26] MEDS: ASCORBIC ACID 500 MG TABLET PO SCH ×2 (08:35→20:21)
[2021-02-26] MEDS: APIXABAN 5 MG TABLET PO SCH ×2 (08:35→16:45)
[2021-02-26] MEDS: ZINC SULFATE 220 MG ( 50 ) CAPSULE PO SCH (08:35)
[2021-02-26] MEDS: LISINOPRIL 5MG TABLET PO SCH (08:37)
[2021-02-26] MEDS ORDERED: NON FORMULARY PATIENT HOME MED PO SCH ×2 (09:00→21:00)
[2021-02-26] MEDS ORDERED: ENOXAPARIN 30MG/0.3ML SYR SUBCUT SCH (09:00)
[2021-02-26] MEDS ORDERED: ENOXAPARIN 40MG/0.4ML SYR SUBCUT SCH (09:00)
[2021-02-26 16:49] LABS: BASOPHILS % 0.7 % (0.0-2.0); EOSINOPHILS % 3.4 % (0.0-5.0); HEMATOCRIT. 31.7 % (36.0-48.0); HEMOGLOBIN. 10.3 g/dL (12.0-16.0); LYMPHOCYTES % 28.6 % (20.0-50.0); MEAN CORPUSCULAR HEMOGLOBIN 28.2 pg (28.0-32.0); MEAN CORPUSCULAR VOLUME 86.5 fL (81.0-99.0); MEAN PLATELET VOLUME 8.5 fl (7.4-10.4); MONOCYTES % 11.7 % (2.0-8.0); NEUTROPHILS % 55.6 % (40.0-76.0); PLATELET 223 x1000/uL (130-400); RED BLOOD CELL COUNT 3.66 mill/uL (4.2-5.4); RED CELL DISTRIBUTION WIDTH 16.2 % (11.6-14.6)
[2021-02-26] MEDS: ATORVASTATIN CALCIUM 10MG TABLET PO SCH (20:21)
[2021-02-26] MEDS: HYDROCODONE/ACETAMINOPHEN 5/325MG TABLET PO PRN (20:22)
[2021-02-27] VITALS (7 sets, daily range): BP systolic 112–125; BP diastolic 52–87
[2021-02-27] MEDS: HYDROCODONE/ACETAMINOPHEN 5/325MG TABLET PO PRN (04:12)
[2021-02-27] MEDS: GABAPENTIN 300MG CAPSULE PO SCH ×3 (05:38→21:27)
[2021-02-27] MEDS: ASCORBIC ACID 500 MG TABLET PO SCH ×2 (08:40→21:27)
[2021-02-27] MEDS: FUROSEMIDE 40MG/4ML VIAL IVP SCH ×2 (08:40→17:37)
[2021-02-27] MEDS: MULTIVITAMINS,THER W-MINERALS TABLET PO SCH (08:40)
[2021-02-27] MEDS: ZINC SULFATE 220 MG ( 50 ) CAPSULE PO SCH (08:40)
[2021-02-27] MEDS: APIXABAN 5 MG TABLET PO SCH ×2 (08:40→17:37)
[2021-02-27] MEDS: LOSARTAN POTASSIUM 100 MG TABLET PO SCH (08:40)
[2021-02-27] MEDS: LISINOPRIL 5MG TABLET PO SCH (08:43)
[2021-02-27] MEDS: ATORVASTATIN CALCIUM 10MG TABLET PO SCH (21:27)
[2021-02-28] VITALS: BP 138/70
[2021-02-28 04:00] VITALS: BP 112/58
[2021-02-28] MEDS: FUROSEMIDE 40MG/4ML VIAL IVP SCH ×2 (06:35→17:43)
[2021-02-28] MEDS: GABAPENTIN 300MG CAPSULE PO SCH ×3 (06:35→21:00)
[2021-02-28 08:00] VITALS: BP 116/65
[2021-02-28] MEDS: MULTIVITAMINS,THER W-MINERALS TABLET PO SCH (09:55)
[2021-02-28] MEDS: APIXABAN 5 MG TABLET PO SCH ×2 (09:55→17:43)
[2021-02-28] MEDS: ZINC SULFATE 220 MG ( 50 ) CAPSULE PO SCH (09:55)
[2021-02-28] MEDS: ASCORBIC ACID 500 MG TABLET PO SCH ×2 (09:55→21:00)
[2021-02-28] MEDS: LOSARTAN POTASSIUM 100 MG TABLET PO SCH (09:55)
[2021-02-28] MEDS: METOLAZONE 2.5MG TABLET PO SCH (09:56)
[2021-02-28] MEDS: LISINOPRIL 5MG TABLET PO SCH (09:56)
[2021-02-28] MEDS ORDERED: POTASSIUM CHLORIDE 20MEQ/PACKET PO NR (11:15)
[2021-02-28 12:00] VITALS: BP 118/70
[2021-02-28 12:17] LABS: BASOPHILS % 0.6 % (0.0-2.0); EOSINOPHILS % 2.8 % (0.0-5.0); HEMATOCRIT. 30.1 % (36.0-48.0); HEMOGLOBIN. 10.2 g/dL (12.0-16.0); LYMPHOCYTES % 16.9 % (20.0-50.0); MEAN CORPUSCULAR HEMOGLOBIN 29.2 pg (28.0-32.0); MEAN CORPUSCULAR VOLUME 85.9 fL (81.0-99.0); MEAN PLATELET VOLUME 9.2 fl (7.4-10.4); NEUTROPHILS % 68.7 % (40.0-76.0); PLATELET 184 x1000/uL (130-400); RED CELL DISTRIBUTION WIDTH 15.8 % (11.6-14.6)
[2021-02-28] MEDS: ACETAMINOPHEN 325MG TABLET PO PRN (13:09)
[2021-02-28 16:00] VITALS: BP 106/50
[2021-02-28] MEDS: HYDROCODONE/ACETAMINOPHEN 5/325MG TABLET PO PRN (17:58)
[2021-02-28 20:00] VITALS: BP 118/48
[2021-02-28 20:06] LABS: BASOPHILS % 0.9 % (0.0-2.0); EOSINOPHILS % 2.8 % (0.0-5.0); HEMATOCRIT. 30.4 % (36.0-48.0); HEMOGLOBIN. 10.1 g/dL (12.0-16.0); LYMPHOCYTES % 18.8 % (20.0-50.0); MEAN CORPUSCULAR HEMOGLOBIN 28.2 pg (28.0-32.0); MEAN CORPUSCULAR VOLUME 85.1 fL (81.0-99.0); MEAN PLATELET VOLUME 8.8 fl (7.4-10.4); MONOCYTES % 12.5 % (2.0-8.0); PLATELET 206 x1000/uL (130-400); RED BLOOD CELL COUNT 3.57 mill/uL (4.2-5.4); RED CELL DISTRIBUTION WIDTH 16.3 % (11.6-14.6)
[2021-02-28] MEDS: AMLODIPINE 2.5MG TABLET PO SCH (20:59)
[2021-02-28] MEDS: ATORVASTATIN CALCIUM 10MG TABLET PO SCH (21:00)
[2021-03-01] VITALS: BP 98/36
[2021-03-01 04:00] VITALS: BP 100/49
[2021-03-01] MEDS: GABAPENTIN 300MG CAPSULE PO SCH ×3 (05:07→21:30)
[2021-03-01] MEDS: FUROSEMIDE 40MG/4ML VIAL IVP SCH ×2 (07:08→19:06)
[2021-03-01 07:56] LABS: BASOPHILS % 0.5 % (0.0-2.0); EOSINOPHILS % 4.8 % (0.0-5.0); HEMATOCRIT. 32.6 % (36.0-48.0); LYMPHOCYTES % 25.1 % (20.0-50.0); MEAN CORPUSCULAR HEMOGLOBIN 28.2 pg (28.0-32.0); MONOCYTES % 12.5 % (2.0-8.0); NEUTROPHILS % 57.1 % (40.0-76.0); PLATELET 172 x1000/uL (130-400); RED BLOOD CELL COUNT 3.88 mill/uL (4.2-5.4); RED CELL DISTRIBUTION WIDTH 16.3 % (11.6-14.6)
[2021-03-01 08:00] VITALS: BP 142/52
[2021-03-01] MEDS: LOSARTAN POTASSIUM 25 MG TABLET PO SCH (09:20)
[2021-03-01] MEDS: APIXABAN 5 MG TABLET PO SCH ×2 (09:20→19:06)
[2021-03-01] MEDS: MULTIVITAMINS,THER W-MINERALS TABLET PO SCH (09:20)
[2021-03-01] MEDS: ASCORBIC ACID 500 MG TABLET PO SCH ×2 (09:20→21:30)
[2021-03-01] MEDS: AMLODIPINE 2.5MG TABLET PO SCH ×2 (09:20→21:30)
[2021-03-01] MEDS: ZINC SULFATE 220 MG ( 50 ) CAPSULE PO SCH (09:20)
[2021-03-01] MEDS: LISINOPRIL 5MG TABLET PO SCH (09:21)
[2021-03-01 12:00] VITALS: BP 132/69
[2021-03-01 16:00] VITALS: BP 118/72
[2021-03-01 20:00] VITALS: BP 122/56
[2021-03-01] MEDS: ATORVASTATIN CALCIUM 10MG TABLET PO SCH (21:30)
[2021-03-02] VITALS: BP 110/52
[2021-03-02 04:00] VITALS: BP 109/70
[2021-03-02] MEDS: GABAPENTIN 300MG CAPSULE PO SCH ×3 (05:35→20:38)
[2021-03-02] MEDS ORDERED: BARIUM SULFATE 450ML ORAL SUSP PO SCH ×2 (07:00→09:00)
[2021-03-02 08:10] VITALS: BP 104/45
[2021-03-02 08:47] LABS: BG BASE EXCESS 3.1 mmol/L (-2.0-2.0); BG CARBOXYHEMOGLOBIN 0.3 % (0.5-1.5); BG DEOXYHEMOGLOBIN 4.6 % (0.0-5.0); BG HCO3 ACT 27.3 mmol/L (22.0-26.0); BG METHEMOGLOBIN 0.3 % (0.0-1.5); BG OXYGEN SATURATION 95.4 % (92.0-98.5); BG OXYHEMOGLOBIN 94.8 % (94.0-97.0); BG PCO2 40.3 mmHg (35.0-45.0); BG PH 7.449 (7.350-7.450); BG PO2 79.1 mmHg (75.0-100.0); BG SAMPLE SITE RIGHT RADIAL; BG VENT MODE ROOM AIR
[2021-03-02] MEDS: FUROSEMIDE 40MG/4ML VIAL IVP SCH ×2 (08:57→18:34)
[2021-03-02] MEDS: LISINOPRIL 5MG TABLET PO SCH (09:00)
[2021-03-02] MEDS: METOLAZONE 2.5MG TABLET PO SCH (09:00)
[2021-03-02] MEDS: AMLODIPINE 2.5MG TABLET PO SCH ×2 (09:00→20:38)
[2021-03-02] MEDS: MULTIVITAMINS,THER W-MINERALS TABLET PO SCH (09:00)
[2021-03-02] MEDS: ZINC SULFATE 220 MG ( 50 ) CAPSULE PO SCH (09:00)
[2021-03-02] MEDS: APIXABAN 5 MG TABLET PO SCH (09:00)
[2021-03-02] MEDS: ASCORBIC ACID 500 MG TABLET PO SCH ×2 (09:00→20:38)
[2021-03-02] MEDS: LOSARTAN POTASSIUM 25 MG TABLET PO SCH (09:00)
[2021-03-02] MEDS: HYDROCODONE/ACETAMINOPHEN 5/325MG TABLET PO PRN (09:09)
[2021-03-02 12:03] VITALS: BP 100/47
[2021-03-02 16:42] VITALS: BP 107/53
[2021-03-02 20:00] VITALS: BP 108/58
[2021-03-02] MEDS ORDERED: PREDNISONE 10MG TABLET PO NR ×2 (20:00→20:30)
[2021-03-02] MEDS ORDERED: PREDNISONE 20MG TABLET PO NR (20:28)
[2021-03-02] MEDS: ATORVASTATIN CALCIUM 10MG TABLET PO SCH (20:37)
[2021-03-03] VITALS: BP 110/61
[2021-03-03] MEDS ORDERED: PREDNISONE 10MG TABLET PO NR ×2 (02:00→08:00)
[2021-03-03] MEDS ORDERED: PREDNISONE 20MG TABLET PO NR ×2 (02:00→08:00)
[2021-03-03 04:00] VITALS: BP 124/60
[2021-03-03] MEDS: GABAPENTIN 300MG CAPSULE PO SCH ×3 (05:22→21:06)
[2021-03-03 06:04] LABS: INR 1.2; PARTIAL THROMBOPLASTIN TIME 38.2 sec (23.4-31.0); PROTHROMBIN TIME 12.5 sec (9.6-11.0)
[2021-03-03] MEDS: FUROSEMIDE 40MG/4ML VIAL IVP SCH ×2 (06:23→17:25)
[2021-03-03 06:29] LABS: BASOPHILS % 0.3 % (0.0-2.0); EOSINOPHILS % 0.3 % (0.0-5.0); HEMATOCRIT. 28.4 % (36.0-48.0); HEMOGLOBIN. 9.8 g/dL (12.0-16.0); LYMPHOCYTES % 8.1 % (20.0-50.0); MEAN CORPUSCULAR HEMOGLOBIN 28.9 pg (28.0-32.0); MEAN CORPUSCULAR VOLUME 83.6 fL (81.0-99.0); MEAN PLATELET VOLUME 8.5 fl (7.4-10.4); MONOCYTES % 1.5 % (2.0-8.0); NEUTROPHILS % 89.8 % (40.0-76.0); PLATELET 225 x1000/uL (130-400); RED CELL DISTRIBUTION WIDTH 15.6 % (11.6-14.6)
[2021-03-03 08:00] VITALS: BP 116/56
[2021-03-03] MEDS ORDERED: DIPHENHYDRAMINE 50MG/ML VIAL IV NR (08:00)
[2021-03-03] MEDS: ASCORBIC ACID 500 MG TABLET PO SCH ×2 (08:50→21:06)
[2021-03-03] MEDS: MULTIVITAMINS,THER W-MINERALS TABLET PO SCH (08:50)
[2021-03-03] MEDS: LISINOPRIL 5MG TABLET PO SCH (08:50)
[2021-03-03] MEDS: ZINC SULFATE 220 MG ( 50 ) CAPSULE PO SCH (08:51)
[2021-03-03] MEDS: LOSARTAN POTASSIUM 25 MG TABLET PO SCH (08:51)
[2021-03-03 08:53] VITALS: BP 116/56
[2021-03-03] MEDS: AMLODIPINE 2.5MG TABLET PO SCH ×2 (08:55→21:00)
[2021-03-03] MEDS ORDERED: IOHEXOL 350 MG/ML 200ML INFUS..BTL IV ONE (10:07)
[2021-03-03] MEDS: ACETAMINOPHEN 325MG TABLET PO PRN (14:22)
[2021-03-03 16:28] VITALS: BP 121/60
[2021-03-03 20:00] VITALS: BP 107/45
[2021-03-03] MEDS: ATORVASTATIN CALCIUM 10MG TABLET PO SCH (21:06)
[2021-03-04] VITALS: BP 111/52
[2021-03-04 04:00] VITALS: BP 124/55
[2021-03-04] MEDS: ACETAMINOPHEN 325MG TABLET PO PRN (04:20)
[2021-03-04] MEDS: FUROSEMIDE 40MG/4ML VIAL IVP SCH (06:26)
[2021-03-04] MEDS: GABAPENTIN 300MG CAPSULE PO SCH (06:26)
[2021-03-04 06:36] LABS: BASOPHILS % 0.1 % (0.0-2.0); EOSINOPHILS % 0.1 % (0.0-5.0); HEMATOCRIT. 28.5 % (36.0-48.0); HEMOGLOBIN. 9.7 g/dL (12.0-16.0); LYMPHOCYTES % 10.7 % (20.0-50.0); MEAN CORPUSCULAR HEMOGLOBIN 28.7 pg (28.0-32.0); MEAN CORPUSCULAR VOLUME 84.7 fL (81.0-99.0); MEAN PLATELET VOLUME 8.2 fl (7.4-10.4); MONOCYTES % 9.6 % (2.0-8.0); NEUTROPHILS % 79.5 % (40.0-76.0); PLATELET 218 x1000/uL (130-400); RED BLOOD CELL COUNT 3.37 mill/uL (4.2-5.4); RED CELL DISTRIBUTION WIDTH 15.8 % (11.6-14.6)
[2021-03-04 08:23] VITALS: BP 106/40
[2021-03-04] MEDS: LISINOPRIL 5MG TABLET PO SCH (09:00)
[2021-03-04] MEDS: AMLODIPINE 2.5MG TABLET PO SCH (09:00)
[2021-03-04] MEDS: MULTIVITAMINS,THER W-MINERALS TABLET PO SCH (09:26)
[2021-03-04] MEDS: ASCORBIC ACID 500 MG TABLET PO SCH (09:26)
[2021-03-04] MEDS: METOLAZONE 2.5MG TABLET PO SCH (09:27)
[2021-03-04] MEDS: ZINC SULFATE 220 MG ( 50 ) CAPSULE PO SCH (09:27)
[2021-03-04] MEDS: LOSARTAN POTASSIUM 25 MG TABLET PO SCH (09:32)
[2021-03-04 12:11] VITALS: BP 96/40
[2021-03-04 13:08] VITALS: BP 96/40
== END 2021-03-04 14:19 | disposition home health service (06) | DRG 291 ==
LOC: ER 16:34 → 8WST 18:45 → ENRESERV 20:53
PROVIDERS: ADMIT Internal Medicine Pulmonary Disease; ATTEND Internal Medicine Pulmonary Disease
PROC: 4B02XSZ Measurement of Cardiac Pacemaker, External Approach (ICD-10-PCS; principal; 2021-03-01)
DX: I11.0 Hypertensive heart disease with heart failure (principal); N17.0 Acute kidney failure with tubular necrosis; J96.00 Acute respiratory failure, unspecified whether with hypoxia or hypercapnia; E44.1 Mild protein-calorie malnutrition; D68.59 Other primary thrombophilia; I50.43 Acute on chronic combined systolic (congestive) and diastolic (congestive) heart failure; D64.9 Anemia, unspecified; E78.5 Hyperlipidemia, unspecified; E87.6 Hypokalemia; I27.20 Pulmonary hypertension, unspecified; I87.2 Venous insufficiency (chronic) (peripheral); I87.8 Other specified disorders of veins; J44.9 Chronic obstructive pulmonary disease, unspecified; Z20.822 Contact with and (suspected) exposure to COVID-19; I73.9 Peripheral vascular disease, unspecified; E78.00 Pure hypercholesterolemia, unspecified; I49.5 Sick sinus syndrome; I34.0 Nonrheumatic mitral (valve) insufficiency; Z79.01 Long term (current) use of anticoagulants; Z86.718 Personal history of other venous thrombosis and embolism; Z87.891 Personal history of nicotine dependence; Z90.710 Acquired absence of both cervix and uterus; Z95.0 Presence of cardiac pacemaker; Z79.899 Other long term (current) drug therapy; Z91.041 Radiographic dye allergy status; I25.2 Old myocardial infarction; Z90.49 Acquired absence of other specified parts of digestive tract; Z88.8 Allergy status to other drugs, medicaments and biological substances; Z68.28 Body mass index [BMI] 28.0-28.9, adult
CPT/HCPCS: 36415; 36600; 71045; 75635; 80048; 80053; 82375; 82805; 83880; 84484; 85025; 87426; 93005; 93306; 93923; 93970; 97116; 97162; 97166; 97530; 99285; J1200; J1940; J2270; J7512; Q9967

== ENCOUNTER 2021-03-11 15:15 | Inpatient (IN) | payer MEDICARE, MEDICAID ==
[~2021-03-11] VITALS: Ht 162.6 cm; Wt 80.7 kg
[~2021-03-11 15:15] MED LIST changes: -FURO-151 MT
[2021-03-11 16:08] LABS: BASOPHILS % 0.8 % (0.0-2.0); EOSINOPHILS % 2.1 % (0.0-5.0); HEMATOCRIT. 29.1 % (36.0-48.0); LYMPHOCYTES % 15.9 % (20.0-50.0); MEAN CORPUSCULAR HEMOGLOBIN 29.2 pg (28.0-32.0); MEAN PLATELET VOLUME 7.9 fl (7.4-10.4); MONOCYTES % 11.1 % (2.0-8.0); NEUTROPHILS % 70.1 % (40.0-76.0); PLATELET 182 x1000/uL (130-400); RED BLOOD CELL COUNT 3.43 mill/uL (4.2-5.4)
[2021-03-11 16:10] LABS: CHLORIDE 108 mEq/L (98-107)
[2021-03-11 20:12] VITALS: BP 142/83
[2021-03-11 20:20] VITALS: BP 142/83
[2021-03-11] MEDS ORDERED: ACETAMINOPHEN 325MG TABLET PO PRN (23:00)
[2021-03-12 00:01] VITALS: BP 149/89
[2021-03-12 05:36] VITALS: BP 141/81
[2021-03-12] MEDS ORDERED: ONDANSETRON HCL 4MG/2ML INJ IV PRN (08:30)
[2021-03-12] MEDS ORDERED: METOPROLOL TARTRATE 50MG TABLET PO SCH (09:00)
[2021-03-12] MEDS ORDERED: ENOXAPARIN 40MG/0.4ML SYR SUBCUT SCH (09:00)
[2021-03-12] MEDS ORDERED: ENOXAPARIN 30MG/0.3ML SYR SUBCUT SCH (09:00)
[2021-03-12] MEDS: ASPIRIN 81MG TABLET PO SCH (09:12)
[2021-03-12] MEDS: FUROSEMIDE 40MG/4ML VIAL IVP SCH ×2 (09:16→18:23)
[2021-03-12 09:58] LABS: HEMOGLOBIN 9.6 g/dL (12.0-16.0); MEAN CORPUSCULAR VOLUME 84.5 fL (81.0-99.0); PLATELET 169 x1000/uL (130-400); RED BLOOD CELL COUNT 3.32 mill/uL (4.2-5.4)
[2021-03-12 10:03] LABS: CHLORIDE 108 mEq/L (98-107)
[2021-03-12 10:10] LABS: LDL CHOLESTEROL 58 mg/dL (5-100)
[2021-03-12 10:12] LABS: CREATINE KINASE 46 IU/L (26-192); HDL CHOLESTEROL 74 mg/dL (40-59)
[2021-03-12 10:15] LABS: CREATINE KINASE MB FRACTION < 1.0 ng/mL (0.5-3.6)
[2021-03-12 12:00] VITALS: BP 119/87
[2021-03-12 16:00] VITALS: BP 140/75
[2021-03-12 16:58] LABS: CREATINE KINASE 43 IU/L (26-192)
[2021-03-12 16:59] LABS: CREATINE KINASE MB FRACTION < 1.0 ng/mL (0.5-3.6)
[2021-03-12] MEDS: POTASSIUM CHLORIDE 20MEQ TABLET SR PO SCH ×2 (18:23→18:24)
[2021-03-12] MEDS: APIXABAN 5 MG TABLET PO SCH (18:25)
[2021-03-12 20:00] VITALS: BP 138/89
[2021-03-12] MEDS: CARVEDILOL 12.5MG TABLET PO SCH (21:09)
[2021-03-12] MEDS: ATORVASTATIN CALCIUM 10MG TABLET PO SCH (21:09)
[2021-03-12 23:54] VITALS: BP 128/66
[2021-03-13 04:00] VITALS: BP 141/77
[2021-03-13 06:10] LABS: BASOPHILS % 0.3 % (0.0-2.0); EOSINOPHILS % 1.1 % (0.0-5.0); HEMATOCRIT. 26.3 % (36.0-48.0); HEMOGLOBIN. 9.1 g/dL (12.0-16.0); LYMPHOCYTES % 21.3 % (20.0-50.0); MEAN CORPUSCULAR VOLUME 84.1 fL (81.0-99.0); MEAN PLATELET VOLUME 8.5 fl (7.4-10.4); MONOCYTES % 11.6 % (2.0-8.0); NEUTROPHILS % 65.7 % (40.0-76.0); PLATELET 138 x1000/uL (130-400); RED BLOOD CELL COUNT 3.13 mill/uL (4.2-5.4); RED CELL DISTRIBUTION WIDTH 16.2 % (11.6-14.6)
[2021-03-13 08:00] VITALS: BP 131/59
[2021-03-13] MEDS ORDERED: METOLAZONE 2.5MG TABLET PO NR (08:00)
[2021-03-13] MEDS ORDERED: ENOXAPARIN 40MG/0.4ML SYR SUBCUT SCH (09:00)
[2021-03-13] MEDS: CARVEDILOL 12.5MG TABLET PO SCH ×2 (09:02→21:55)
[2021-03-13] MEDS: APIXABAN 5 MG TABLET PO SCH ×2 (09:02→17:13)
[2021-03-13] MEDS: ASPIRIN 81MG TABLET PO SCH (09:02)
[2021-03-13] MEDS: POTASSIUM CHLORIDE 20MEQ TABLET SR PO SCH ×2 (09:02→17:13)
[2021-03-13] MEDS: FUROSEMIDE 40MG/4ML VIAL IVP SCH ×2 (09:02→17:13)
[2021-03-13] MEDS ORDERED: FURO-151 MT (11:54)
[2021-03-13] MEDS ORDERED: COR12 PO (11:54)
[2021-03-13] MEDS ORDERED: POTA20TA82 PO (11:54)
[2021-03-13 12:00] VITALS: BP 139/75
[2021-03-13 16:00] VITALS: BP 133/68
[2021-03-13 20:00] VITALS: BP 128/77
[2021-03-13] MEDS: ATORVASTATIN CALCIUM 10MG TABLET PO SCH (21:54)
[2021-03-14] VITALS: BP 130/80
[2021-03-14 04:00] VITALS: BP 143/79
[2021-03-14 06:40] LABS: BASOPHILS % 0.4 % (0.0-2.0); EOSINOPHILS % 2.1 % (0.0-5.0); HEMATOCRIT. 28.4 % (36.0-48.0); HEMOGLOBIN. 9.6 g/dL (12.0-16.0); LYMPHOCYTES % 14.7 % (20.0-50.0); MEAN CORPUSCULAR HEMOGLOBIN 28.7 pg (28.0-32.0); MEAN PLATELET VOLUME 8.1 fl (7.4-10.4); MONOCYTES % 11.2 % (2.0-8.0); NEUTROPHILS % 71.6 % (40.0-76.0); PLATELET 152 x1000/uL (130-400); RED BLOOD CELL COUNT 3.35 mill/uL (4.2-5.4); RED CELL DISTRIBUTION WIDTH 16.4 % (11.6-14.6)
[2021-03-14 07:50] VITALS: BP 132/57
[2021-03-14] MEDS: ASPIRIN 81MG TABLET PO SCH (08:37)
[2021-03-14] MEDS: POTASSIUM CHLORIDE 20MEQ TABLET SR PO SCH ×2 (08:37→17:18)
[2021-03-14] MEDS: FUROSEMIDE 40MG/4ML VIAL IVP SCH ×2 (08:37→17:18)
[2021-03-14] MEDS: APIXABAN 5 MG TABLET PO SCH ×2 (08:37→17:18)
[2021-03-14] MEDS: CARVEDILOL 12.5MG TABLET PO SCH ×2 (08:37→21:41)
[2021-03-14 11:53] VITALS: BP 129/60
[2021-03-14 15:53] VITALS: BP 129/73
[2021-03-14 20:00] VITALS: BP 123/80
[2021-03-14] MEDS: ATORVASTATIN CALCIUM 10MG TABLET PO SCH (21:41)
[2021-03-15] VITALS: BP 129/66
[2021-03-15 04:00] VITALS: BP 125/66
[2021-03-15 08:00] VITALS: BP 113/52
[2021-03-15] MEDS: FUROSEMIDE 40MG/4ML VIAL IVP SCH (08:39)
[2021-03-15] MEDS: APIXABAN 5 MG TABLET PO SCH ×2 (08:40→17:46)
[2021-03-15] MEDS: POTASSIUM CHLORIDE 20MEQ TABLET SR PO SCH ×2 (08:40→17:46)
[2021-03-15] MEDS: ASPIRIN 81MG TABLET PO SCH (08:40)
[2021-03-15] MEDS: CARVEDILOL 12.5MG TABLET PO SCH ×2 (08:40→21:00)
[2021-03-15 12:00] VITALS: BP 132/60
[2021-03-15 16:00] VITALS: BP 108/68
[2021-03-15 20:00] VITALS: BP 113/59
[2021-03-15] MEDS: ATORVASTATIN CALCIUM 10MG TABLET PO SCH (21:00)
[2021-03-15] MEDS: FUROSEMIDE 40MG TABLET PO SCH (21:00)
[2021-03-16 00:18] VITALS: BP 122/77
[2021-03-16 04:00] VITALS: BP 122/77
[2021-03-16 05:55] LABS: BASOPHILS % 0.7 % (0.0-2.0); EOSINOPHILS % 2.5 % (0.0-5.0); HEMATOCRIT. 27.1 % (36.0-48.0); LYMPHOCYTES % 25.6 % (20.0-50.0); MEAN CORPUSCULAR HEMOGLOBIN 28.3 pg (28.0-32.0); MEAN CORPUSCULAR VOLUME 85.2 fL (81.0-99.0); MEAN PLATELET VOLUME 7.8 fl (7.4-10.4); MONOCYTES % 10.6 % (2.0-8.0); NEUTROPHILS % 60.6 % (40.0-76.0); PLATELET 171 x1000/uL (130-400); RED BLOOD CELL COUNT 3.19 mill/uL (4.2-5.4); RED CELL DISTRIBUTION WIDTH 16.2 % (11.6-14.6)
[2021-03-16 08:00] VITALS: BP 132/75
[2021-03-16] MEDS ORDERED: POTASSIUM CHLORIDE 20MEQ/PACKET PO NR (09:30)
[2021-03-16] MEDS: ASPIRIN 81MG TABLET PO SCH (10:26)
[2021-03-16] MEDS: APIXABAN 5 MG TABLET PO SCH ×2 (10:27→17:27)
[2021-03-16] MEDS: CARVEDILOL 12.5MG TABLET PO SCH ×2 (10:27→21:47)
[2021-03-16] MEDS: FUROSEMIDE 40MG TABLET PO SCH ×2 (10:27→21:47)
[2021-03-16] MEDS: POTASSIUM CHLORIDE 20MEQ TABLET SR PO SCH ×2 (10:27→17:00)
[2021-03-16 12:00] VITALS: BP 100/53
[2021-03-16 16:00] VITALS: BP 131/68
[2021-03-16 20:00] VITALS: BP 125/70
[2021-03-16] MEDS: ATORVASTATIN CALCIUM 10MG TABLET PO SCH (21:47)
[2021-03-17 04:00] VITALS: BP 125/71
[2021-03-17 06:20] LABS: BASOPHILS % 0.5 % (0.0-2.0); EOSINOPHILS % 3.1 % (0.0-5.0); HEMATOCRIT. 26.5 % (36.0-48.0); HEMOGLOBIN. 8.9 g/dL (12.0-16.0); LYMPHOCYTES % 20.4 % (20.0-50.0); MEAN CORPUSCULAR HEMOGLOBIN 28.5 pg (28.0-32.0); MEAN CORPUSCULAR VOLUME 85.2 fL (81.0-99.0); MEAN PLATELET VOLUME 7.7 fl (7.4-10.4); MONOCYTES % 10.9 % (2.0-8.0); NEUTROPHILS % 65.1 % (40.0-76.0); PLATELET 158 x1000/uL (130-400); RED BLOOD CELL COUNT 3.11 mill/uL (4.2-5.4); RED CELL DISTRIBUTION WIDTH 16.5 % (11.6-14.6)
[2021-03-17 08:40] VITALS: BP 120/66
[2021-03-17] MEDS: FUROSEMIDE 40MG TABLET PO SCH ×2 (09:04→20:18)
[2021-03-17] MEDS: POTASSIUM CHLORIDE 20MEQ TABLET SR PO SCH ×2 (09:04→17:52)
[2021-03-17] MEDS: ASPIRIN 81MG TABLET PO SCH (09:04)
[2021-03-17] MEDS: APIXABAN 5 MG TABLET PO SCH ×2 (09:04→17:52)
[2021-03-17] MEDS: CARVEDILOL 12.5MG TABLET PO SCH ×2 (09:04→20:18)
[2021-03-17] MEDS ORDERED: POTASSIUM CHLORIDE 20MEQ/PACKET PO NR (11:00)
[2021-03-17 12:03] VITALS: BP 126/71
[2021-03-17 16:00] VITALS: BP 121/70
[2021-03-17 20:00] VITALS: BP 108/67
[2021-03-17] MEDS: ATORVASTATIN CALCIUM 10MG TABLET PO SCH (20:18)
[2021-03-18] VITALS: BP 117/68
[2021-03-18 04:00] VITALS: BP 125/67
[2021-03-18 06:59] LABS: BASOPHILS % 0.5 % (0.0-2.0); EOSINOPHILS % 2.8 % (0.0-5.0); HEMATOCRIT. 26.5 % (36.0-48.0); HEMOGLOBIN. 9.1 g/dL (12.0-16.0); LYMPHOCYTES % 26.3 % (20.0-50.0); MEAN CORPUSCULAR VOLUME 84.2 fL (81.0-99.0); MONOCYTES % 10.2 % (2.0-8.0); NEUTROPHILS % 60.2 % (40.0-76.0); PLATELET 166 x1000/uL (130-400); RED BLOOD CELL COUNT 3.15 mill/uL (4.2-5.4); RED CELL DISTRIBUTION WIDTH 15.9 % (11.6-14.6)
[2021-03-18 08:00] VITALS: BP 141/75
[2021-03-18] MEDS: CARVEDILOL 12.5MG TABLET PO SCH (08:43)
[2021-03-18] MEDS: FUROSEMIDE 40MG TABLET PO SCH (08:43)
[2021-03-18] MEDS: APIXABAN 5 MG TABLET PO SCH (08:44)
[2021-03-18] MEDS: ASPIRIN 81MG TABLET PO SCH (08:44)
[2021-03-18] MEDS: POTASSIUM CHLORIDE 20MEQ TABLET SR PO SCH (08:44)
[2021-03-18 12:00] VITALS: BP 109/59
== END 2021-03-18 15:35 | disposition home health service (06) | DRG 291 ==
LOC: ER 15:15 → 8WST 18:45 → ENRESERV 19:29
PROVIDERS: ADMIT Internal Medicine Pulmonary Disease; ATTEND Internal Medicine Pulmonary Disease
DX: I13.0 Hypertensive heart and chronic kidney disease with heart failure and stage 1 through stage 4 chronic kidney disease, or unspecified chronic kidney disease (principal); I50.43 Acute on chronic combined systolic (congestive) and diastolic (congestive) heart failure; E44.0 Moderate protein-calorie malnutrition; I42.0 Dilated cardiomyopathy; E78.5 Hyperlipidemia, unspecified; E87.6 Hypokalemia; N18.9 Chronic kidney disease, unspecified; I27.20 Pulmonary hypertension, unspecified; I34.0 Nonrheumatic mitral (valve) insufficiency; I49.5 Sick sinus syndrome; I73.9 Peripheral vascular disease, unspecified; I49.3 Ventricular premature depolarization; J44.9 Chronic obstructive pulmonary disease, unspecified; I87.2 Venous insufficiency (chronic) (peripheral); Z86.711 Personal history of pulmonary embolism; Z86.718 Personal history of other venous thrombosis and embolism; Z87.891 Personal history of nicotine dependence; Z91.041 Radiographic dye allergy status; Z88.8 Allergy status to other drugs, medicaments and biological substances; Z90.49 Acquired absence of other specified parts of digestive tract; Z90.710 Acquired absence of both cervix and uterus; Z68.30 Body mass index [BMI] 30.0-30.9, adult; Z95.0 Presence of cardiac pacemaker
CPT/HCPCS: 36415; 71045; 80048; 80053; 80061; 82550; 82553; 83880; 84484; 85025; 85027; 93005; 97116; 97162; 99291; J1650; J1940

== ENCOUNTER 2021-04-24 12:45 | Inpatient (IN) | payer MEDICARE, MEDICAID ==
[~2021-04-24] VITALS: Ht 172.7 cm; Wt 62.6 kg
[~2021-04-24 12:45] MED LIST changes: +COR12 PO; +FURO-151 MT; +POTA20TA82 PO
[2021-04-24 16:25] LABS: BASOPHILS % 0.3 % (0.0-2.0); EOSINOPHILS % 2.2 % (0.0-5.0); HEMATOCRIT. 32.4 % (36.0-48.0); HEMOGLOBIN. 10.8 g/dL (12.0-16.0); LYMPHOCYTES % 20.2 % (20.0-50.0); MEAN CORPUSCULAR VOLUME 86.5 fL (81.0-99.0); MEAN PLATELET VOLUME 8.3 fl (7.4-10.4); MONOCYTES % 7.5 % (2.0-8.0); NEUTROPHILS % 69.8 % (40.0-76.0); PLATELET 209 x1000/uL (130-400); RED BLOOD CELL COUNT 3.75 mill/uL (4.2-5.4)
[2021-04-24 16:33] LABS: CHLORIDE 107 mEq/L (98-107)
[2021-04-24] MEDS ORDERED: ASPIRIN 81MG TABLET PO ONE (17:15)
[2021-04-24] MEDS ORDERED: FUROSEMIDE 40MG TABLET PO ONE (17:15)
[2021-04-24] MEDS ORDERED: DIPHENHYDRAMINE 50MG/ML VIAL IV PRN (18:00)
[2021-04-24] MEDS ORDERED: ENOXAPARIN 30MG/0.3ML SYR SUBCUT SCH (18:00)
[2021-04-24] MEDS ORDERED: ENOXAPARIN 40MG/0.4ML SYR SUBCUT SCH (18:00)
[2021-04-24] MEDS ORDERED: ONDANSETRON HCL 4MG/2ML INJ IV PRN (18:00)
[2021-04-24] MEDS ORDERED: IPRATROPIUM/ALBUTEROL 0.5-3(2.5)MG/3ML NEB HHN PRN (18:00)
[2021-04-24] MEDS ORDERED: CLONIDINE 0.1MG TABLET PO PRN (18:00)
[2021-04-25] VITALS (10 sets, daily range): BP systolic 115–147; BP diastolic 47–71
[2021-04-25 06:41] LABS: BASOPHILS % 0.3 % (0.0-2.0); EOSINOPHILS % 1.7 % (0.0-5.0); HEMATOCRIT. 28.9 % (36.0-48.0); HEMOGLOBIN. 9.7 g/dL (12.0-16.0); LYMPHOCYTES % 16.1 % (20.0-50.0); MEAN CORPUSCULAR HEMOGLOBIN 28.8 pg (28.0-32.0); MEAN CORPUSCULAR VOLUME 86.2 fL (81.0-99.0); MEAN PLATELET VOLUME 7.8 fl (7.4-10.4); NEUTROPHILS % 72.9 % (40.0-76.0); PLATELET 191 x1000/uL (130-400); RED BLOOD CELL COUNT 3.35 mill/uL (4.2-5.4); RED CELL DISTRIBUTION WIDTH 16.6 % (11.6-14.6)
[2021-04-25 06:54] LABS: CHLORIDE 109 mEq/L (98-107)
[2021-04-25 07:03] LABS: LDL CHOLESTEROL 63 mg/dL (5-100)
[2021-04-25 07:05] LABS: HDL CHOLESTEROL 67 mg/dL (40-59)
[2021-04-25] MEDS ORDERED: FUROSEMIDE 40MG/4ML VIAL IV SCH (09:00)
[2021-04-25] MEDS: LISINOPRIL 5MG TABLET PO SCH (12:41)
[2021-04-25] MEDS: CARVEDILOL 6.25 MG TABLET PO SCH ×2 (12:42→21:45)
[2021-04-25] MEDS: ENOXAPARIN 80MG/0.8ML SYR SUBCUT SCH (12:42)
[2021-04-25] MEDS ORDERED: CEFTRIAXONE 1 G PREMIX 50 ML IV SCH (13:30)
[2021-04-25 15:11] LABS: T4 FREE 1.65 ng/dL (0.76-1.46)
[2021-04-25] MEDS: CEFTRIAXONE 1,000 MG in DEXTROSE 5% WATER 50 ML IV SCH (16:19)
[2021-04-25] MEDS: ACETAMINOPHEN 325MG TABLET PO PRN (18:27)
[2021-04-25] MEDS: VANCOMYCIN 750 MG PREMIX 150 ML IV SCH (18:47)
[2021-04-25] MEDS: FUROSEMIDE 40MG/4ML VIAL IV SCH (21:46)
[2021-04-26] VITALS (12 sets, daily range): BP systolic 117–155; BP diastolic 46–93
[2021-04-26 06:52] LABS: INR 1.2; PROTHROMBIN TIME 13.1 sec (9.6-11.0)
[2021-04-26] MEDS: FUROSEMIDE 40MG/4ML VIAL IV SCH ×2 (08:52→22:26)
[2021-04-26] MEDS: CARVEDILOL 6.25 MG TABLET PO SCH ×2 (08:53→22:26)
[2021-04-26] MEDS: LISINOPRIL 5MG TABLET PO SCH (08:53)
[2021-04-26] MEDS: ENOXAPARIN 80MG/0.8ML SYR SUBCUT SCH (13:03)
[2021-04-26] MEDS: PANTOPRAZOLE 40MG DR TABLET PO SCH (13:09)
[2021-04-26] MEDS: CEFTRIAXONE 1,000 MG in DEXTROSE 5% WATER 50 ML IV SCH (15:49)
[2021-04-26] MEDS: VANCOMYCIN 750 MG PREMIX 150 ML IV SCH (18:46)
[2021-04-27] VITALS (12 sets, daily range): BP systolic 118–141; BP diastolic 57–87
[2021-04-27] MEDS: PANTOPRAZOLE 40MG DR TABLET PO SCH (06:05)
[2021-04-27 06:49] LABS: BASOPHILS % 0.5 % (0.0-2.0); EOSINOPHILS % 1.6 % (0.0-5.0); HEMOGLOBIN. 9.6 g/dL (12.0-16.0); LYMPHOCYTES % 19.9 % (20.0-50.0); MEAN CORPUSCULAR HEMOGLOBIN 29.4 pg (28.0-32.0); MEAN CORPUSCULAR VOLUME 85.5 fL (81.0-99.0); MEAN PLATELET VOLUME 8.2 fl (7.4-10.4); MONOCYTES % 13.1 % (2.0-8.0); NEUTROPHILS % 64.9 % (40.0-76.0); PLATELET 156 x1000/uL (130-400); RED BLOOD CELL COUNT 3.27 mill/uL (4.2-5.4); RED CELL DISTRIBUTION WIDTH 16.5 % (11.6-14.6)
[2021-04-27] MEDS ORDERED: METOLAZONE 2.5MG TABLET PO SCH (07:00)
[2021-04-27] MEDS: LISINOPRIL 5MG TABLET PO SCH (08:18)
[2021-04-27] MEDS: CARVEDILOL 6.25 MG TABLET PO SCH ×2 (08:18→21:31)
[2021-04-27] MEDS: FUROSEMIDE 40MG/4ML VIAL IV SCH ×2 (08:23→21:31)
[2021-04-27] MEDS ORDERED: POTASSIUM CHLORIDE 20MEQ TABLET SR PO NR (08:30)
[2021-04-27] MEDS ORDERED: POTASSIUM CHLORIDE INJ 40 MEQ in DEXT 5% WATER 250 ML IV NR (09:30)
[2021-04-27] MEDS: ENOXAPARIN 80MG/0.8ML SYR SUBCUT SCH (11:59)
[2021-04-27] MEDS: CEFTRIAXONE 1,000 MG in DEXTROSE 5% WATER 50 ML IV SCH (14:23)
[2021-04-27] MEDS: VANCOMYCIN 750 MG PREMIX 150 ML IV SCH (19:14)
[2021-04-27] MEDS ORDERED: POTASSIUM CHLORIDE 20MEQ/PACKET PO NR (21:00)
[2021-04-27] MEDS: ACETAMINOPHEN 325MG TABLET PO PRN (22:32)
[2021-04-28] VITALS (13 sets, daily range): BP systolic 97–123; BP diastolic 43–71
[2021-04-28 07:20] LABS: BASOPHILS % 0.4 % (0.0-2.0); EOSINOPHILS % 1.6 % (0.0-5.0); HEMATOCRIT. 28.3 % (36.0-48.0); HEMOGLOBIN. 9.6 g/dL (12.0-16.0); LYMPHOCYTES % 21.5 % (20.0-50.0); MEAN CORPUSCULAR HEMOGLOBIN 29.1 pg (28.0-32.0); MEAN CORPUSCULAR VOLUME 85.6 fL (81.0-99.0); MEAN PLATELET VOLUME 8.1 fl (7.4-10.4); MONOCYTES % 13.3 % (2.0-8.0); NEUTROPHILS % 63.2 % (40.0-76.0); PLATELET 171 x1000/uL (130-400); RED CELL DISTRIBUTION WIDTH 16.6 % (11.6-14.6)
[2021-04-28] MEDS: ENOXAPARIN 60MG/0.6ML SYR SUBCUT SCH (08:26)
[2021-04-28] MEDS: LISINOPRIL 5MG TABLET PO SCH (08:27)
[2021-04-28] MEDS: FUROSEMIDE 40MG/4ML VIAL IV SCH ×2 (08:27→21:10)
[2021-04-28] MEDS: FAMOTIDINE 20MG TABLET PO SCH (08:27)
[2021-04-28] MEDS: CARVEDILOL 6.25 MG TABLET PO SCH ×2 (08:28→21:10)
[2021-04-28] MEDS ORDERED: POTASSIUM CHLORIDE 20MEQ TABLET SR PO SCH (11:00)
[2021-04-28] MEDS ORDERED: COR6 PO (12:29)
[2021-04-28] MEDS: CEFTRIAXONE 1,000 MG in DEXTROSE 5% WATER 50 ML IV SCH (14:19)
[2021-04-28] MEDS: VANCOMYCIN 1 G PREMIX 200 ML IV SCH (18:34)
[2021-04-29] VITALS (7 sets, daily range): BP systolic 107–124; BP diastolic 36–73
[2021-04-29] MEDS: FAMOTIDINE 20MG TABLET PO SCH (09:30)
[2021-04-29] MEDS: CARVEDILOL 6.25 MG TABLET PO SCH (09:30)
[2021-04-29] MEDS: LISINOPRIL 5MG TABLET PO SCH (09:30)
[2021-04-29] MEDS: FUROSEMIDE 40MG/4ML VIAL IV SCH (09:31)
[2021-04-29] MEDS: ENOXAPARIN 60MG/0.6ML SYR SUBCUT SCH (09:31)
[2021-04-29] MEDS: CEFTRIAXONE 1,000 MG in DEXTROSE 5% WATER 50 ML IV SCH (15:04)
[2021-04-29] MEDS: VANCOMYCIN 1 G PREMIX 200 ML IV SCH (18:00)
== END 2021-04-29 20:34 | DRG 602 ==
LOC: ER 12:45 → MICUSO 17:28 → 3WST 04-25 02:05
PROVIDERS: ADMIT Internal Medicine; ATTEND Internal Medicine
PROC: 4B02XSZ Measurement of Cardiac Pacemaker, External Approach (ICD-10-PCS; principal; 2021-04-27)
DX: L03.115 Cellulitis of right lower limb (principal); I50.23 Acute on chronic systolic (congestive) heart failure; I13.0 Hypertensive heart and chronic kidney disease with heart failure and stage 1 through stage 4 chronic kidney disease, or unspecified chronic kidney disease; E46 Unspecified protein-calorie malnutrition; L97.911 Non-pressure chronic ulcer of unspecified part of right lower leg limited to breakdown of skin; I42.0 Dilated cardiomyopathy; L03.116 Cellulitis of left lower limb; E78.00 Pure hypercholesterolemia, unspecified; E78.5 Hyperlipidemia, unspecified; E87.6 Hypokalemia; I34.0 Nonrheumatic mitral (valve) insufficiency; K21.9 Gastro-esophageal reflux disease without esophagitis; F03.90 Unspecified dementia, unspecified severity, without behavioral disturbance, psychotic disturbance, mood disturbance, and anxiety; I73.9 Peripheral vascular disease, unspecified; L89.90 Pressure ulcer of unspecified site, unspecified stage; I49.5 Sick sinus syndrome; I27.20 Pulmonary hypertension, unspecified; I87.8 Other specified disorders of veins; I83.009 Varicose veins of unspecified lower extremity with ulcer of unspecified site; J44.9 Chronic obstructive pulmonary disease, unspecified; N18.9 Chronic kidney disease, unspecified; Z87.891 Personal history of nicotine dependence; Z90.49 Acquired absence of other specified parts of digestive tract; Z90.710 Acquired absence of both cervix and uterus; Z95.0 Presence of cardiac pacemaker; Z68.21 Body mass index [BMI] 21.0-21.9, adult; Z86.718 Personal history of other venous thrombosis and embolism; Z86.711 Personal history of pulmonary embolism
CPT/HCPCS: 36415; 71045; 80048; 80053; 80061; 80202; 82040; 83735; 83880; 84134; 84439; 84443; 84484; 85025; 93005; 93306; 93970; 97162; 99291; A6261; C1893; J0696; J1650; J1940; J3370; J3480; J7040; J7060

== ENCOUNTER 2021-05-19 15:38 | Inpatient (IN) | payer MEDICARE, OTHER ==
[~2021-05-19] VITALS: Ht 172.7 cm; Wt 75.7 kg
[2021-05-19 02:00] VITALS: BP 138/81
[~2021-05-19 15:38] MED LIST changes: -COR12 PO; +COR6 PO; -METO2.5T2 PO; -POTA-79 MT
[2021-05-19] MEDS ORDERED: ASPIRIN 81MG TABLET PO ONE (16:45)
[2021-05-19 17:48] LABS: BASOPHILS % 0.4 % (0.0-2.0); EOSINOPHILS % 1.7 % (0.0-5.0); HEMATOCRIT. 31.3 % (36.0-48.0); HEMOGLOBIN. 10.4 g/dL (12.0-16.0); LYMPHOCYTES % 19.4 % (20.0-50.0); MEAN CORPUSCULAR HEMOGLOBIN 29.2 pg (28.0-32.0); MEAN CORPUSCULAR VOLUME 87.8 fL (81.0-99.0); MEAN PLATELET VOLUME 7.7 fl (7.4-10.4); MONOCYTES % 7.1 % (2.0-8.0); NEUTROPHILS % 71.4 % (40.0-76.0); PLATELET 205 x1000/uL (130-400); RED BLOOD CELL COUNT 3.56 mill/uL (4.2-5.4); RED CELL DISTRIBUTION WIDTH 17.2 % (11.6-14.6)
[2021-05-19 17:51] LABS: CHLORIDE 113 mEq/L (98-107)
[2021-05-19] MEDS ORDERED: ONDANSETRON HCL 4MG/2ML INJ IV PRN (20:00)
[2021-05-19] MEDS ORDERED: ACETAMINOPHEN 325MG TABLET PO PRN ×2 (20:00)
[2021-05-19] MEDS: ENOXAPARIN 30MG/0.3ML SYR SUBCUT SCH (20:52)
[2021-05-19] MEDS ORDERED: HYDRALAZINE 10 MG in SODIUM CHLORIDE 0.9% 49.5 ML IV PRN (21:15)
[2021-05-19] MEDS ORDERED: HYDRALAZINE 20MG/ML VIAL IV PRN (21:30)
[2021-05-20] MEDS ORDERED: FUROSEMIDE 40MG/4ML VIAL IVP SCH ×2 (01:00→12:00)
[2021-05-20 04:00] VITALS: BP 141/74
[2021-05-20] MEDS ORDERED: DOCU-138 PO (05:15)
[2021-05-20 07:53] LABS: CHLORIDE 115 mEq/L (98-107)
[2021-05-20 07:56] LABS: BASOPHILS % 0.5 % (0.0-2.0); HEMATOCRIT. 27.4 % (36.0-48.0); HEMOGLOBIN. 9.1 g/dL (12.0-16.0); LYMPHOCYTES % 29.5 % (20.0-50.0); MEAN CORPUSCULAR HEMOGLOBIN 29.1 pg (28.0-32.0); MEAN CORPUSCULAR VOLUME 88.2 fL (81.0-99.0); MEAN PLATELET VOLUME 7.8 fl (7.4-10.4); PLATELET 165 x1000/uL (130-400); RED BLOOD CELL COUNT 3.11 mill/uL (4.2-5.4); RED CELL DISTRIBUTION WIDTH 17.4 % (11.6-14.6)
[2021-05-20 08:00] VITALS: BP 146/71
[2021-05-20 08:08] LABS: PHOSPHORUS 3.6 mg/dL (2.5-4.9)
[2021-05-20] MEDS ORDERED: LISINOPRIL 2.5MG TABLET PO NR (11:30)
[2021-05-20] MEDS ORDERED: POTASSIUM CHLORIDE 20MEQ/PACKET PO NR (11:30)
[2021-05-20 12:00] VITALS: BP 157/89
[2021-05-20 20:00] VITALS: BP 103/71
[2021-05-20] MEDS: ENOXAPARIN 30MG/0.3ML SYR SUBCUT SCH ×2 (21:00→23:28)
[2021-05-20] MEDS: CARVEDILOL 3.125 MG TABLET PO SCH (21:00)
[2021-05-21] VITALS: BP 153/82
[2021-05-21 06:44] LABS: BASOPHILS % 0.4 % (0.0-2.0); HEMATOCRIT. 31.5 % (36.0-48.0); HEMOGLOBIN. 10.6 g/dL (12.0-16.0); LYMPHOCYTES % 25.3 % (20.0-50.0); MEAN CORPUSCULAR HEMOGLOBIN 29.6 pg (28.0-32.0); MEAN CORPUSCULAR VOLUME 87.9 fL (81.0-99.0); MEAN PLATELET VOLUME 7.4 fl (7.4-10.4); MONOCYTES % 9.8 % (2.0-8.0); NEUTROPHILS % 61.5 % (40.0-76.0); PLATELET 187 x1000/uL (130-400); RED BLOOD CELL COUNT 3.59 mill/uL (4.2-5.4); RED CELL DISTRIBUTION WIDTH 17.3 % (11.6-14.6)
[2021-05-21 06:52] LABS: CHLORIDE 110 mEq/L (98-107)
[2021-05-21 06:59] LABS: PHOSPHORUS 3.4 mg/dL (2.5-4.9)
[2021-05-21] MEDS: CARVEDILOL 3.125 MG TABLET PO SCH ×2 (09:00→21:00)
[2021-05-21] MEDS: FUROSEMIDE 20MG/2ML VIAL IVP SCH ×2 (09:03→21:00)
[2021-05-21] MEDS: POTASSIUM CHLORIDE 20MEQ/PACKET PO SCH (09:03)
[2021-05-21] MEDS: LISINOPRIL 2.5MG TABLET PO SCH (09:04)
[2021-05-21] MEDS ORDERED: FAMOTIDINE 20MG TABLET PO PRN (10:30)
[2021-05-21] MEDS ORDERED: POTASSIUM CHLORIDE 20MEQ/PACKET PO NR (13:00)
[2021-05-21] MEDS: ENOXAPARIN 30MG/0.3ML SYR SUBCUT SCH (21:00)
[2021-05-22 05:49] LABS: HEMATOCRIT 28.9 % (36.0-48.0); HEMOGLOBIN 9.8 g/dL (12.0-16.0); MEAN CORPUSCULAR HEMOGLOBIN 29.4 pg (28.0-32.0); MEAN CORPUSCULAR VOLUME 86.6 fL (81.0-99.0); PLATELET 170 x1000/uL (130-400); RED BLOOD CELL COUNT 3.34 mill/uL (4.2-5.4); RED CELL DISTRIBUTION WIDTH 16.5 % (11.6-14.6)
[2021-05-22 08:00] VITALS: BP 144/76
[2021-05-22] MEDS: POTASSIUM CHLORIDE 20MEQ/PACKET PO SCH (08:54)
[2021-05-22] MEDS: FUROSEMIDE 20MG/2ML VIAL IVP SCH ×2 (08:54→21:20)
[2021-05-22] MEDS: CARVEDILOL 3.125 MG TABLET PO SCH ×2 (08:54→21:21)
[2021-05-22] MEDS: LISINOPRIL 2.5MG TABLET PO SCH (08:55)
[2021-05-22] MEDS ORDERED: POTASSIUM CHLORIDE 20MEQ TABLET SR PO SCH (10:15)
[2021-05-22 12:00] VITALS: BP 135/69
[2021-05-22 16:00] VITALS: BP 129/71
[2021-05-22 20:00] VITALS: BP 124/70
[2021-05-22] MEDS: ENOXAPARIN 30MG/0.3ML SYR SUBCUT SCH (21:21)
[2021-05-22] MEDS ORDERED: FAMOTIDINE 20MG TABLET PO PRN (21:45)
[2021-05-23] VITALS: BP 120/70
[2021-05-23 04:00] VITALS: BP 128/77
[2021-05-23 08:00] VITALS: BP 123/74
[2021-05-23] MEDS: LISINOPRIL 2.5MG TABLET PO SCH (08:31)
[2021-05-23] MEDS: FUROSEMIDE 20MG/2ML VIAL IVP SCH (08:31)
[2021-05-23] MEDS: CARVEDILOL 3.125 MG TABLET PO SCH (08:32)
[2021-05-23] MEDS: POTASSIUM CHLORIDE 20MEQ/PACKET PO SCH (08:32)
[2021-05-23 12:00] VITALS: BP 125/67
[2021-05-23 13:17] VITALS: BP 123/67
[2021-05-23 16:00] VITALS: BP 130/72
[2021-05-23] MEDS ORDERED: FUROSEMIDE 40MG TABLET PO SCH (17:00)
== END 2021-05-23 18:19 | DRG 291 ==
LOC: ER 15:38 → EDBEDREQ 16:41 → EDBEDREQTM 18:10 → SUPCPDRO 19:35 → EDBEDREQ 19:40 → EDBEDREQTM 19:40 → MICUSO 20:19 → 7EST 23:55
PROVIDERS: ADMIT Internal Medicine; ATTEND Internal Medicine
DX: I13.0 Hypertensive heart and chronic kidney disease with heart failure and stage 1 through stage 4 chronic kidney disease, or unspecified chronic kidney disease (principal); I50.43 Acute on chronic combined systolic (congestive) and diastolic (congestive) heart failure; K21.9 Gastro-esophageal reflux disease without esophagitis; I42.0 Dilated cardiomyopathy; E78.00 Pure hypercholesterolemia, unspecified; E78.5 Hyperlipidemia, unspecified; F03.90 Unspecified dementia, unspecified severity, without behavioral disturbance, psychotic disturbance, mood disturbance, and anxiety; I08.1 Rheumatic disorders of both mitral and tricuspid valves; I25.10 Atherosclerotic heart disease of native coronary artery without angina pectoris; I25.2 Old myocardial infarction; I27.21 Secondary pulmonary arterial hypertension; Z20.822 Contact with and (suspected) exposure to COVID-19; I73.9 Peripheral vascular disease, unspecified; J44.9 Chronic obstructive pulmonary disease, unspecified; N18.9 Chronic kidney disease, unspecified; E87.6 Hypokalemia; Z53.20 Procedure and treatment not carried out because of patient's decision for unspecified reasons; D64.9 Anemia, unspecified; Z79.899 Other long term (current) drug therapy; Z90.49 Acquired absence of other specified parts of digestive tract; Z90.710 Acquired absence of both cervix and uterus; Z91.81 History of falling; Z91.041 Radiographic dye allergy status; Z95.0 Presence of cardiac pacemaker; Z98.41 Cataract extraction status, right eye; Z86.711 Personal history of pulmonary embolism; Z88.8 Allergy status to other drugs, medicaments and biological substances; Z87.891 Personal history of nicotine dependence; Z86.718 Personal history of other venous thrombosis and embolism; R79.89 Other specified abnormal findings of blood chemistry
CPT/HCPCS: 36415; 71045; 80048; 80053; 82962; 83735; 83880; 84100; 84132; 84484; 85025; 85027; 87426; 93005; 99285; C1893; J0360; J1650; J1940

== ENCOUNTER 2021-07-16 12:08 | Inpatient (IN) | payer MEDICARE, OTHER, MEDICAID ==
[~2021-07-16] VITALS: Ht 172.7 cm; Wt 77.8 kg
[~2021-07-16 12:08] MED LIST changes: +DOCU-138 PO
[2021-07-16 14:16] LABS: CHLORIDE 109 mEq/L (98-107)
[2021-07-16 14:19] LABS: BASOPHILS % 0.3 % (0.0-2.0); EOSINOPHILS % 0.8 % (0.0-5.0); HEMOGLOBIN. 10.3 g/dL (12.0-16.0); LYMPHOCYTES % 12.7 % (20.0-50.0); MEAN CORPUSCULAR HEMOGLOBIN 30.2 pg (28.0-32.0); MEAN CORPUSCULAR VOLUME 90.9 fL (81.0-99.0); MEAN PLATELET VOLUME 8.2 fl (7.4-10.4); MONOCYTES % 7.5 % (2.0-8.0); NEUTROPHILS % 78.7 % (40.0-76.0); PLATELET 166 x1000/uL (130-400); RED BLOOD CELL COUNT 3.41 mill/uL (4.2-5.4); RED CELL DISTRIBUTION WIDTH 15.4 % (11.6-14.6)
[2021-07-16] MEDS ORDERED: CLOPIDOGREL 75MG TABLET PO NR (15:00)
[2021-07-16] MEDS ORDERED: ENOXAPARIN 80MG/0.8ML SYR SUBCUT NR (15:00)
[2021-07-16] MEDS ORDERED: ACETAMINOPHEN 325MG TABLET PO PRN (18:45)
[2021-07-16] MEDS ORDERED: GUAIFENESIN 200MG/10ML SUGAR FREE UDC PO PRN (18:45)
[2021-07-16] MEDS ORDERED: MAGNESIUM/ALUMINUM HYDROXIDE/SIMETHICONE 30ML UDC PO PRN (18:45)
[2021-07-16] MEDS ORDERED: DIPHENHYDRAMINE 50MG/ML VIAL IV PRN (18:45)
[2021-07-16] MEDS ORDERED: CLONIDINE 0.1MG TABLET PO PRN (18:45)
[2021-07-16] MEDS: ONDANSETRON HCL 4MG/2ML INJ IV PRN (19:07)
[2021-07-16] MEDS: ATORVASTATIN CALCIUM 20MG TABLET PO SCH (22:20)
[2021-07-16] MEDS: FAMOTIDINE 20MG TABLET PO SCH (22:21)
[2021-07-16] MEDS: CARVEDILOL 3.125 MG TABLET PO SCH (22:21)
[2021-07-16] MEDS: SODIUM CHLORIDE 0.9% INJ 3ML FLUSH IVF SCH (22:26)
[2021-07-17] VITALS (13 sets, daily range): BP systolic 120–144; BP diastolic 58–85
[2021-07-17] MEDS: SODIUM CHLORIDE 0.9% INJ 3ML FLUSH IVF SCH ×3 (07:00→21:39)
[2021-07-17] MEDS: LISINOPRIL 2.5MG TABLET PO SCH (08:41)
[2021-07-17] MEDS: CARVEDILOL 3.125 MG TABLET PO SCH ×2 (08:42→21:38)
[2021-07-17] MEDS: ASPIRIN 81MG EC TABLET PO SCH (08:42)
[2021-07-17] MEDS ORDERED: ENOXAPARIN 30MG/0.3ML SYR SUBCUT SCH ×2 (09:00→21:00)
[2021-07-17] MEDS: NITROGLYCERIN OINT 1GM/INCH UDPKT TD SCH ×2 (12:07→17:45)
[2021-07-17] MEDS: ONDANSETRON HCL 4MG/2ML INJ IV PRN (14:02)
[2021-07-17] MEDS: GABAPENTIN 100MG CAPSULE PO SCH (17:36)
[2021-07-17] MEDS ORDERED: ENOXAPARIN 40MG/0.4ML SYR SUBCUT SCH ×2 (21:28→22:00)
[2021-07-17] MEDS: ATORVASTATIN CALCIUM 20MG TABLET PO SCH (21:38)
[2021-07-17] MEDS: FAMOTIDINE 20MG TABLET PO SCH (21:38)
[2021-07-18] VITALS (12 sets, daily range): BP systolic 115–146; BP diastolic 70–95
[2021-07-18] MEDS: NITROGLYCERIN OINT 1GM/INCH UDPKT TD SCH ×4 (00:16→18:04)
[2021-07-18] MEDS: SODIUM CHLORIDE 0.9% INJ 3ML FLUSH IVF SCH ×3 (05:59→21:26)
[2021-07-18] MEDS ORDERED: SENN-155 PO (06:45)
[2021-07-18] MEDS ORDERED: CLON0.1T PO (06:45)
[2021-07-18] MEDS ORDERED: FAMO20TA8 PO (06:45)
[2021-07-18 07:42] LABS: BASOPHILS % 0.6 % (0.0-2.0); EOSINOPHILS % 3.1 % (0.0-5.0); HEMATOCRIT. 30.7 % (36.0-48.0); HEMOGLOBIN. 10.2 g/dL (12.0-16.0); LYMPHOCYTES % 22.7 % (20.0-50.0); MEAN CORPUSCULAR HEMOGLOBIN 29.8 pg (28.0-32.0); MEAN CORPUSCULAR VOLUME 89.5 fL (81.0-99.0); MEAN PLATELET VOLUME 8.1 fl (7.4-10.4); MONOCYTES % 10.8 % (2.0-8.0); NEUTROPHILS % 62.8 % (40.0-76.0); PLATELET 172 x1000/uL (130-400); RED BLOOD CELL COUNT 3.43 mill/uL (4.2-5.4); RED CELL DISTRIBUTION WIDTH 15.6 % (11.6-14.6)
[2021-07-18 08:03] LABS: CHLORIDE 111 mEq/L (98-107)
[2021-07-18 08:12] LABS: LDL CHOLESTEROL 63 mg/dL (5-100)
[2021-07-18 08:14] LABS: CREATINE KINASE 34 IU/L (26-192); CREATINE KINASE MB FRACTION < 1.0 ng/mL (0.5-3.6); HDL CHOLESTEROL 44 mg/dL (40-59)
[2021-07-18] MEDS ORDERED: ENOXAPARIN 40MG/0.4ML SYR SUBCUT SCH (09:00)
[2021-07-18] MEDS: LISINOPRIL 2.5MG TABLET PO SCH (09:29)
[2021-07-18] MEDS: ASPIRIN 81MG EC TABLET PO SCH (09:30)
[2021-07-18] MEDS: GABAPENTIN 100MG CAPSULE PO SCH ×2 (09:30→16:41)
[2021-07-18] MEDS: CARVEDILOL 3.125 MG TABLET PO SCH ×2 (09:30→21:27)
[2021-07-18] MEDS: ACETAMINOPHEN 325MG TABLET PO PRN ×2 (13:44→21:29)
[2021-07-18] MEDS: TRAMADOL 50MG TABLET PO PRN (16:42)
[2021-07-18] MEDS ORDERED: ENOXAPARIN 80MG/0.8ML SYR SUBCUT SCH (21:00)
[2021-07-18] MEDS: ATORVASTATIN CALCIUM 20MG TABLET PO SCH (21:26)
[2021-07-18] MEDS: FAMOTIDINE 20MG TABLET PO SCH (21:26)
[2021-07-19] VITALS (12 sets, daily range): BP systolic 121–149; BP diastolic 52–89
[2021-07-19] MEDS: NITROGLYCERIN OINT 1GM/INCH UDPKT TD SCH ×4 (00:03→18:00)
[2021-07-19] MEDS: TRAMADOL 50MG TABLET PO PRN ×2 (02:44→20:43)
[2021-07-19] MEDS: SODIUM CHLORIDE 0.9% INJ 3ML FLUSH IVF SCH ×3 (06:00→20:44)
[2021-07-19 07:09] LABS: BASOPHILS % 0.4 % (0.0-2.0); EOSINOPHILS % 2.3 % (0.0-5.0); HEMATOCRIT. 28.5 % (36.0-48.0); HEMOGLOBIN. 9.3 g/dL (12.0-16.0); LYMPHOCYTES % 14.8 % (20.0-50.0); MEAN CORPUSCULAR HEMOGLOBIN 30.1 pg (28.0-32.0); MEAN CORPUSCULAR VOLUME 91.9 fL (81.0-99.0); MEAN PLATELET VOLUME 8.1 fl (7.4-10.4); NEUTROPHILS % 71.5 % (40.0-76.0); PLATELET 180 x1000/uL (130-400); RED CELL DISTRIBUTION WIDTH 15.7 % (11.6-14.6)
[2021-07-19] MEDS: CARVEDILOL 3.125 MG TABLET PO SCH ×2 (08:15→20:43)
[2021-07-19 08:20] LABS: VITAMIN B12 SERUM 597 pg/mL (211-911)
[2021-07-19] MEDS: FUROSEMIDE 40MG TABLET PO SCH (08:54)
[2021-07-19] MEDS: GABAPENTIN 100MG CAPSULE PO SCH ×2 (08:55→17:00)
[2021-07-19] MEDS: ASPIRIN 81MG EC TABLET PO SCH (08:55)
[2021-07-19] MEDS: LISINOPRIL 2.5MG TABLET PO SCH (08:55)
[2021-07-19] MEDS ORDERED: REGADENOSON 0.4 MG/5 ML IV NR (11:15)
[2021-07-19] MEDS ORDERED: NALOXONE HCL 0.4MG/ML VIAL IV PRN (13:30)
[2021-07-19] MEDS: FAMOTIDINE 20MG TABLET PO SCH (20:43)
[2021-07-19] MEDS: ATORVASTATIN CALCIUM 20MG TABLET PO SCH (20:43)
[2021-07-20] VITALS (16 sets, daily range): BP systolic 114–148; BP diastolic 50–75
[2021-07-20] MEDS: NITROGLYCERIN OINT 1GM/INCH UDPKT TD SCH ×4 (00:20→18:52)
[2021-07-20] MEDS: SODIUM CHLORIDE 0.9% INJ 3ML FLUSH IVF SCH ×3 (05:48→21:57)
[2021-07-20 07:04] LABS: BASOPHILS % 0.4 % (0.0-2.0); EOSINOPHILS % 1.6 % (0.0-5.0); HEMATOCRIT. 23.5 % (36.0-48.0); HEMOGLOBIN. 7.9 g/dL (12.0-16.0); LYMPHOCYTES % 13.6 % (20.0-50.0); MEAN CORPUSCULAR HEMOGLOBIN 29.8 pg (28.0-32.0); MEAN CORPUSCULAR VOLUME 88.8 fL (81.0-99.0); MEAN PLATELET VOLUME 8.2 fl (7.4-10.4); MONOCYTES % 14.9 % (2.0-8.0); NEUTROPHILS % 69.5 % (40.0-76.0); PLATELET 159 x1000/uL (130-400); RED BLOOD CELL COUNT 2.65 mill/uL (4.2-5.4); RED CELL DISTRIBUTION WIDTH 15.8 % (11.6-14.6)
[2021-07-20] MEDS: FUROSEMIDE 40MG TABLET PO SCH (08:36)
[2021-07-20] MEDS: ASPIRIN 81MG EC TABLET PO SCH (08:36)
[2021-07-20] MEDS: GABAPENTIN 100MG CAPSULE PO SCH ×2 (08:36→17:04)
[2021-07-20] MEDS: CARVEDILOL 3.125 MG TABLET PO SCH ×2 (08:37→21:58)
[2021-07-20] MEDS: LISINOPRIL 2.5MG TABLET PO SCH (08:37)
[2021-07-20] MEDS: TRAMADOL 50MG TABLET PO PRN (09:46)
[2021-07-20] MEDS ORDERED: REGADENOSON 0.4 MG/5 ML IV ONE (13:38)
[2021-07-20] MEDS: ATORVASTATIN CALCIUM 20MG TABLET PO SCH (21:57)
[2021-07-20] MEDS: FAMOTIDINE 20MG TABLET PO SCH (21:57)
[2021-07-21] VITALS (14 sets, daily range): BP systolic 97–153; BP diastolic 42–76
[2021-07-21] MEDS: NITROGLYCERIN OINT 1GM/INCH UDPKT TD SCH ×4 (06:21→18:05)
[2021-07-21] MEDS: SODIUM CHLORIDE 0.9% INJ 3ML FLUSH IVF SCH ×3 (06:22→20:31)
[2021-07-21] MEDS: GABAPENTIN 100MG CAPSULE PO SCH ×2 (09:08→18:04)
[2021-07-21] MEDS: FUROSEMIDE 40MG TABLET PO SCH (09:08)
[2021-07-21] MEDS: ONDANSETRON HCL 4MG/2ML INJ IV PRN (09:08)
[2021-07-21] MEDS: LISINOPRIL 2.5MG TABLET PO SCH (09:09)
[2021-07-21] MEDS: CARVEDILOL 3.125 MG TABLET PO SCH ×2 (09:09→20:31)
[2021-07-21 14:19] LABS: HEMATOCRIT 23.2 % (36.0-48.0); HEMOGLOBIN 7.7 g/dL (12.0-16.0); MEAN CORPUSCULAR HEMOGLOBIN 29.7 pg (28.0-32.0); MEAN CORPUSCULAR VOLUME 89.5 fL (81.0-99.0); PLATELET 169 x1000/uL (130-400); RED BLOOD CELL COUNT 2.59 mill/uL (4.2-5.4); RED CELL DISTRIBUTION WIDTH 15.9 % (11.6-14.6)
[2021-07-21] MEDS: TRAMADOL 50MG TABLET PO PRN (16:30)
[2021-07-21] MEDS ORDERED: LACTULOSE 20G/30ML UDC PO NR (18:45)
[2021-07-21] MEDS: ATORVASTATIN CALCIUM 20MG TABLET PO SCH (20:30)
[2021-07-21] MEDS: FAMOTIDINE 20MG TABLET PO SCH (20:30)
[2021-07-22] VITALS (17 sets, daily range): BP systolic 109–141; BP diastolic 49–81
[2021-07-22] MEDS: NITROGLYCERIN OINT 1GM/INCH UDPKT TD SCH ×4 (00:15→20:15)
[2021-07-22] MEDS: SODIUM CHLORIDE 0.9% INJ 3ML FLUSH IVF SCH ×3 (06:08→20:16)
[2021-07-22 06:25] LABS: BASOPHILS % 0.5 % (0.0-2.0); EOSINOPHILS % 2.1 % (0.0-5.0); HEMATOCRIT. 21.6 % (36.0-48.0); HEMOGLOBIN. 7.3 g/dL (12.0-16.0); LYMPHOCYTES % 21.4 % (20.0-50.0); MEAN CORPUSCULAR HEMOGLOBIN 30.2 pg (28.0-32.0); MEAN PLATELET VOLUME 8.3 fl (7.4-10.4); MONOCYTES % 13.2 % (2.0-8.0); NEUTROPHILS % 62.8 % (40.0-76.0); PLATELET 189 x1000/uL (130-400); RED BLOOD CELL COUNT 2.42 mill/uL (4.2-5.4); RED CELL DISTRIBUTION WIDTH 15.7 % (11.6-14.6)
[2021-07-22] MEDS: CARVEDILOL 3.125 MG TABLET PO SCH ×2 (08:21→20:15)
[2021-07-22] MEDS: TRAMADOL 50MG TABLET PO PRN (08:21)
[2021-07-22] MEDS: GABAPENTIN 100MG CAPSULE PO SCH ×2 (08:21→16:57)
[2021-07-22] MEDS: FUROSEMIDE 40MG TABLET PO SCH (08:21)
[2021-07-22] MEDS: LISINOPRIL 2.5MG TABLET PO SCH (08:21)
[2021-07-22] MEDS: FAMOTIDINE 20MG TABLET PO SCH (20:15)
[2021-07-22] MEDS: ATORVASTATIN CALCIUM 20MG TABLET PO SCH (20:15)
[2021-07-22 22:15] LABS: HEMATOCRIT 25.5 % (36.0-48.0); HEMOGLOBIN 8.6 g/dL (12.0-16.0)
[2021-07-22 22:28] LABS: INR 1.1; PROTHROMBIN TIME 12.2 sec (9.6-11.0)
[2021-07-23] VITALS (12 sets, daily range): BP systolic 95–162; BP diastolic 47–99
[2021-07-23] MEDS: SODIUM CHLORIDE 0.9% INJ 3ML FLUSH IVF SCH ×3 (05:49→21:01)
[2021-07-23] MEDS: CARVEDILOL 3.125 MG TABLET PO SCH ×2 (08:39→20:59)
[2021-07-23] MEDS: LISINOPRIL 2.5MG TABLET PO SCH (08:40)
[2021-07-23] MEDS: FUROSEMIDE 40MG TABLET PO SCH (08:40)
[2021-07-23] MEDS: GABAPENTIN 100MG CAPSULE PO SCH ×2 (08:40→16:30)
[2021-07-23] MEDS: NITROGLYCERIN OINT 1GM/INCH UDPKT TD SCH ×2 (08:40→20:56)
[2021-07-23] MEDS: ONDANSETRON HCL 4MG/2ML INJ IV PRN (11:45)
[2021-07-23] MEDS: TRAMADOL 50MG TABLET PO PRN (14:22)
[2021-07-23] MEDS: ATORVASTATIN CALCIUM 20MG TABLET PO SCH (20:56)
[2021-07-23] MEDS: FAMOTIDINE 20MG TABLET PO SCH (20:56)
[2021-07-24] VITALS (12 sets, daily range): BP systolic 99–141; BP diastolic 38–87
[2021-07-24] MEDS: SODIUM CHLORIDE 0.9% INJ 3ML FLUSH IVF SCH ×3 (06:22→21:57)
[2021-07-24 07:50] LABS: BASOPHILS % 0.5 % (0.0-2.0); EOSINOPHILS % 1.9 % (0.0-5.0); HEMATOCRIT. 30.4 % (36.0-48.0); HEMOGLOBIN. 9.9 g/dL (12.0-16.0); MEAN CORPUSCULAR HEMOGLOBIN 29.4 pg (28.0-32.0); MEAN CORPUSCULAR VOLUME 89.9 fL (81.0-99.0); MEAN PLATELET VOLUME 8.3 fl (7.4-10.4); NEUTROPHILS % 67.6 % (40.0-76.0); PLATELET 226 x1000/uL (130-400); RED BLOOD CELL COUNT 3.38 mill/uL (4.2-5.4); RED CELL DISTRIBUTION WIDTH 16.2 % (11.6-14.6)
[2021-07-24] MEDS: ACETAMINOPHEN 325MG TABLET PO PRN (08:46)
[2021-07-24] MEDS: LISINOPRIL 2.5MG TABLET PO SCH (08:46)
[2021-07-24] MEDS: GABAPENTIN 100MG CAPSULE PO SCH ×2 (08:46→17:15)
[2021-07-24] MEDS: CARVEDILOL 3.125 MG TABLET PO SCH ×2 (08:47→20:22)
[2021-07-24] MEDS: FUROSEMIDE 40MG TABLET PO SCH (08:47)
[2021-07-24] MEDS: NITROGLYCERIN OINT 1GM/INCH UDPKT TD SCH ×2 (08:50→20:23)
[2021-07-24] MEDS ORDERED: APIXABAN 2.5 MG TABLET PO SCH (10:00)
[2021-07-24 15:58] LABS: BG BASE EXCESS 3.1 mmol/L (-2.0-2.0); BG CARBOXYHEMOGLOBIN 0.5 % (0.5-1.5); BG DEOXYHEMOGLOBIN 12.2 % (0.0-5.0); BG HCO3 ACT 26.8 mmol/L (22.0-26.0); BG METHEMOGLOBIN 0.1 % (0.0-1.5); BG OXYGEN SATURATION 87.7 % (92.0-98.5); BG OXYHEMOGLOBIN 87.2 % (94.0-97.0); BG PH 7.477 (7.350-7.450); BG PO2 55.2 mmHg (75.0-100.0); BG SAMPLE SITE LEFT BRACHIAL; BG TOTAL HEMOGLOBIN 9.6 g/dL (12.0-18.0); BG VENT MODE ROOM AIR
[2021-07-24] MEDS: FAMOTIDINE 20MG TABLET PO SCH (20:57)
[2021-07-24] MEDS: ATORVASTATIN CALCIUM 20MG TABLET PO SCH (20:57)
[2021-07-25] VITALS (11 sets, daily range): BP systolic 94–127; BP diastolic 38–60
[2021-07-25] MEDS: SODIUM CHLORIDE 0.9% INJ 3ML FLUSH IVF SCH ×3 (05:09→21:16)
[2021-07-25 06:53] LABS: BASOPHILS % 0.6 % (0.0-2.0); EOSINOPHILS % 2.6 % (0.0-5.0); HEMOGLOBIN. 8.2 g/dL (12.0-16.0); LYMPHOCYTES % 19.6 % (20.0-50.0); MEAN CORPUSCULAR HEMOGLOBIN 29.6 pg (28.0-32.0); MEAN CORPUSCULAR VOLUME 89.9 fL (81.0-99.0); MEAN PLATELET VOLUME 8.1 fl (7.4-10.4); MONOCYTES % 14.2 % (2.0-8.0); PLATELET 189 x1000/uL (130-400); RED BLOOD CELL COUNT 2.78 mill/uL (4.2-5.4)
[2021-07-25] MEDS: GABAPENTIN 100MG CAPSULE PO SCH ×2 (08:54→17:12)
[2021-07-25] MEDS: FUROSEMIDE 40MG TABLET PO SCH (08:54)
[2021-07-25] MEDS: LISINOPRIL 2.5MG TABLET PO SCH (08:55)
[2021-07-25] MEDS: NITROGLYCERIN OINT 1GM/INCH UDPKT TD SCH ×2 (08:56→20:33)
[2021-07-25] MEDS: CARVEDILOL 3.125 MG TABLET PO SCH ×2 (08:57→20:34)
[2021-07-25] MEDS: ATORVASTATIN CALCIUM 20MG TABLET PO SCH (20:39)
[2021-07-25] MEDS: FAMOTIDINE 20MG TABLET PO SCH (20:39)
== END 2021-07-25 22:37 | DRG 280 ==
LOC: ER 12:08 → EDBEDREQSVC 21:11 → EDBEDREQTM 21:11 → ENRESERV 22:59 → 3WST 07-17 00:28 → 6EST 07-17 21:14 → 3WST 07-17 21:30
PROVIDERS: ADMIT Internal Medicine; ATTEND Internal Medicine
PROC: 30233N1 Transfusion of Nonautologous Red Blood Cells into Peripheral Vein, Percutaneous Approach (ICD-10-PCS; principal; 2021-07-22)
DX: I21.4 Non-ST elevation (NSTEMI) myocardial infarction (principal); J96.01 Acute respiratory failure with hypoxia; N17.0 Acute kidney failure with tubular necrosis; I82.432 Acute embolism and thrombosis of left popliteal vein; I13.0 Hypertensive heart and chronic kidney disease with heart failure and stage 1 through stage 4 chronic kidney disease, or unspecified chronic kidney disease; I42.0 Dilated cardiomyopathy; I50.22 Chronic systolic (congestive) heart failure; D64.9 Anemia, unspecified; E78.00 Pure hypercholesterolemia, unspecified; I27.20 Pulmonary hypertension, unspecified; F03.90 Unspecified dementia, unspecified severity, without behavioral disturbance, psychotic disturbance, mood disturbance, and anxiety; E78.5 Hyperlipidemia, unspecified; J44.9 Chronic obstructive pulmonary disease, unspecified; I87.2 Venous insufficiency (chronic) (peripheral); I49.3 Ventricular premature depolarization; I73.9 Peripheral vascular disease, unspecified; N18.9 Chronic kidney disease, unspecified; Z20.822 Contact with and (suspected) exposure to COVID-19; M19.90 Unspecified osteoarthritis, unspecified site; E87.8 Other disorders of electrolyte and fluid balance, not elsewhere classified; I34.0 Nonrheumatic mitral (valve) insufficiency; I36.1 Nonrheumatic tricuspid (valve) insufficiency; Z79.01 Long term (current) use of anticoagulants; Z86.711 Personal history of pulmonary embolism; Z86.718 Personal history of other venous thrombosis and embolism; Z87.891 Personal history of nicotine dependence; Z90.710 Acquired absence of both cervix and uterus; Z95.0 Presence of cardiac pacemaker; Z79.84 Long term (current) use of oral hypoglycemic drugs; Z79.899 Other long term (current) drug therapy; Z88.0 Allergy status to penicillin
CPT/HCPCS: 36415; 36600; 71045; 73030; 73090; 78452; 80048; 80053; 80061; 82375; 82550; 82553; 82607; 82805; 83540; 83550; 83735; 83880; 84443; 84484; 85014; 85018; 85025; 85027; 85044; 85049; 85379; 85384; 86850; 86900; 86920; 87426; 93005; 93017; 93306; 93923; 93970; 93971; 97162; 97166; 99291; A6261; A9500; C1893; J1650; J2405; J2785; J7040; P9016

== ENCOUNTER 2021-07-25 22:46 | Inpatient (IN) | payer MEDICARE, OTHER, MEDICAID ==
[~2021-07-25] VITALS: Ht 172.7 cm; Wt 86.2 kg
[2021-07-25 22:35] VITALS: BP_SYST 100; BP_SYST 94; BP_DIAS 42; BP_DIAS 56
[~2021-07-25 22:46] MED LIST changes: +CLON0.1T PO; +FAMO20TA8 PO; +SENN-155 PO
[2021-07-25] MEDS ORDERED: DIPHENHYDRAMINE 25MG CAPSULE PO PRN (23:30)
[2021-07-25] MEDS ORDERED: CLONIDINE 0.2MG TABLET PO PRN (23:30)
[2021-07-25] MEDS ORDERED: GUAIFENESIN 200MG/10ML SUGAR FREE UDC PO PRN (23:30)
[2021-07-26] VITALS: BP 106/60
[2021-07-26] MEDS ORDERED: SODIUM CHLORIDE 0.9% INJ 3ML FLUSH IVF ONE (06:00)
[2021-07-26 06:41] LABS: HEMATOCRIT 23.1 % (36.0-48.0); HEMOGLOBIN 7.7 g/dL (12.0-16.0); MEAN CORPUSCULAR HEMOGLOBIN 29.7 pg (28.0-32.0); MEAN CORPUSCULAR VOLUME 89.6 fL (81.0-99.0); PLATELET 204 x1000/uL (130-400); RED BLOOD CELL COUNT 2.58 mill/uL (4.2-5.4); RED CELL DISTRIBUTION WIDTH 15.6 % (11.6-14.6)
[2021-07-26 08:00] VITALS: BP 101/49
[2021-07-26] MEDS ORDERED: NITROGLYCERIN OINT 1GM/INCH UDPKT TD SCH (09:00)
[2021-07-26] MEDS: CARVEDILOL 3.125 MG TABLET PO SCH ×2 (09:00→21:00)
[2021-07-26] MEDS: GABAPENTIN 100MG CAPSULE PO SCH ×2 (09:10→19:21)
[2021-07-26] MEDS: FUROSEMIDE 40MG TABLET PO SCH (09:10)
[2021-07-26] MEDS: LISINOPRIL 2.5MG TABLET PO SCH (09:11)
[2021-07-26 20:00] VITALS: BP 105/55
[2021-07-26] MEDS: FAMOTIDINE 20MG TABLET PO SCH (21:46)
[2021-07-26] MEDS: ATORVASTATIN CALCIUM 20MG TABLET PO SCH (21:47)
[2021-07-27 07:35] LABS: BASOPHILS % 0.5 % (0.0-2.0); EOSINOPHILS % 3.9 % (0.0-5.0); HEMATOCRIT. 26.7 % (36.0-48.0); HEMOGLOBIN. 8.7 g/dL (12.0-16.0); LYMPHOCYTES % 18.8 % (20.0-50.0); MEAN CORPUSCULAR HEMOGLOBIN 29.5 pg (28.0-32.0); MEAN CORPUSCULAR VOLUME 90.4 fL (81.0-99.0); MEAN PLATELET VOLUME 7.9 fl (7.4-10.4); MONOCYTES % 13.9 % (2.0-8.0); NEUTROPHILS % 62.9 % (40.0-76.0); PLATELET 214 x1000/uL (130-400); RED BLOOD CELL COUNT 2.95 mill/uL (4.2-5.4); RED CELL DISTRIBUTION WIDTH 15.8 % (11.6-14.6)
[2021-07-27 08:05] VITALS: BP 100/53
[2021-07-27] MEDS: CARVEDILOL 3.125 MG TABLET PO SCH ×2 (09:00→20:28)
[2021-07-27] MEDS: LISINOPRIL 2.5MG TABLET PO SCH (09:00)
[2021-07-27] MEDS: GABAPENTIN 100MG CAPSULE PO SCH ×2 (09:03→17:40)
[2021-07-27] MEDS: FUROSEMIDE 40MG TABLET PO SCH (09:03)
[2021-07-27] MEDS: APIXABAN 2.5 MG TABLET PO SCH ×2 (10:57→17:40)
[2021-07-27] MEDS: TRAMADOL 50MG TABLET PO PRN (11:57)
[2021-07-27] MEDS: LACTULOSE 20G/30ML UDC PO PRN (11:57)
[2021-07-27] MEDS: HYDROCODONE/ACETAMINOPHEN 5/325MG TABLET PO PRN (15:23)
[2021-07-27 20:00] VITALS: BP 109/47
[2021-07-27] MEDS: ATORVASTATIN CALCIUM 20MG TABLET PO SCH (20:30)
[2021-07-27] MEDS: FAMOTIDINE 20MG TABLET PO SCH (20:30)
[2021-07-28] MEDS: ONDANSETRON HCL 4MG TABLET PO PRN ×2 (06:16→21:30)
[2021-07-28] MEDS: TRAMADOL 50MG TABLET PO PRN (08:01)
[2021-07-28 08:21] VITALS: BP 148/67
[2021-07-28] MEDS: FUROSEMIDE 40MG TABLET PO SCH (10:00)
[2021-07-28] MEDS: CARVEDILOL 3.125 MG TABLET PO SCH ×2 (10:01→21:00)
[2021-07-28] MEDS: APIXABAN 2.5 MG TABLET PO SCH ×2 (10:01→16:32)
[2021-07-28] MEDS: GABAPENTIN 100MG CAPSULE PO SCH ×2 (10:01→16:32)
[2021-07-28] MEDS: LISINOPRIL 2.5MG TABLET PO SCH (10:02)
[2021-07-28] MEDS: ACETAMINOPHEN 325MG TABLET PO PRN (10:03)
[2021-07-28 20:00] VITALS: BP 98/51
[2021-07-28] MEDS: ATORVASTATIN CALCIUM 20MG TABLET PO SCH (21:30)
[2021-07-28] MEDS: FAMOTIDINE 20MG TABLET PO SCH (21:30)
[2021-07-29 08:00] VITALS: BP 111/60
[2021-07-29] MEDS: LISINOPRIL 2.5MG TABLET PO SCH (09:00)
[2021-07-29] MEDS: CARVEDILOL 3.125 MG TABLET PO SCH ×2 (09:00→21:00)
[2021-07-29] MEDS: TRAMADOL 50MG TABLET PO PRN (09:17)
[2021-07-29] MEDS: APIXABAN 2.5 MG TABLET PO SCH ×2 (09:17→17:17)
[2021-07-29] MEDS: FUROSEMIDE 40MG TABLET PO SCH (09:17)
[2021-07-29] MEDS: GABAPENTIN 100MG CAPSULE PO SCH ×2 (09:18→17:17)
[2021-07-29] MEDS ORDERED: NALOXONE HCL 0.4MG/ML VIAL IV PRN (18:00)
[2021-07-29 20:00] VITALS: BP 109/65
[2021-07-29] MEDS: ATORVASTATIN CALCIUM 20MG TABLET PO SCH (22:28)
[2021-07-29] MEDS: FAMOTIDINE 20MG TABLET PO SCH (22:28)
[2021-07-29] MEDS: GENTAMICIN 0.3% OPHTH DROPS 5ML EACHEYE SCH (22:29)
[2021-07-30 07:50] VITALS: BP 120/69
[2021-07-30] MEDS: FUROSEMIDE 40MG TABLET PO SCH (08:20)
[2021-07-30] MEDS: CARVEDILOL 3.125 MG TABLET PO SCH ×2 (08:21→22:36)
[2021-07-30] MEDS: TRAMADOL 50MG TABLET PO PRN (08:21)
[2021-07-30] MEDS: LISINOPRIL 2.5MG TABLET PO SCH (08:21)
[2021-07-30] MEDS: GABAPENTIN 100MG CAPSULE PO SCH ×2 (08:21→16:50)
[2021-07-30] MEDS: GENTAMICIN 0.3% OPHTH DROPS 5ML EACHEYE SCH ×4 (11:10→22:42)
[2021-07-30] MEDS: APIXABAN 2.5 MG TABLET PO SCH (16:50)
[2021-07-30 20:00] VITALS: BP 100/42
[2021-07-30] MEDS: FAMOTIDINE 20MG TABLET PO SCH (22:35)
[2021-07-30] MEDS: ATORVASTATIN CALCIUM 20MG TABLET PO SCH (22:37)
[2021-07-31 07:59] VITALS: BP 109/61
[2021-07-31] MEDS: CARVEDILOL 3.125 MG TABLET PO SCH ×2 (09:00→21:57)
[2021-07-31] MEDS: LISINOPRIL 2.5MG TABLET PO SCH (09:00)
[2021-07-31] MEDS: GENTAMICIN 0.3% OPHTH DROPS 5ML EACHEYE SCH ×4 (09:43→21:59)
[2021-07-31] MEDS: FUROSEMIDE 40MG TABLET PO SCH (09:43)
[2021-07-31] MEDS: GABAPENTIN 100MG CAPSULE PO SCH ×2 (09:43→17:57)
[2021-07-31] MEDS: APIXABAN 2.5 MG TABLET PO SCH ×2 (09:43→17:57)
[2021-07-31] MEDS: LACTULOSE 20G/30ML UDC PO PRN (09:49)
[2021-07-31] MEDS: MAGNESIUM/ALUMINUM HYDROXIDE/SIMETHICONE 30ML UDC PO PRN (09:49)
[2021-07-31] MEDS: TRAMADOL 50MG TABLET PO PRN (09:53)
[2021-07-31 20:00] VITALS: BP 112/46
[2021-07-31] MEDS: ATORVASTATIN CALCIUM 20MG TABLET PO SCH (21:57)
[2021-07-31] MEDS: FAMOTIDINE 20MG TABLET PO SCH (21:59)
[2021-08-01 08:00] VITALS: BP 131/74
[2021-08-01] MEDS: GENTAMICIN 0.3% OPHTH DROPS 5ML EACHEYE SCH ×4 (09:52→20:44)
[2021-08-01] MEDS: CARVEDILOL 3.125 MG TABLET PO SCH ×2 (09:53→20:44)
[2021-08-01] MEDS: APIXABAN 2.5 MG TABLET PO SCH ×2 (09:53→17:41)
[2021-08-01] MEDS: GABAPENTIN 100MG CAPSULE PO SCH ×2 (09:54→17:41)
[2021-08-01] MEDS: FUROSEMIDE 40MG TABLET PO SCH (09:54)
[2021-08-01] MEDS: LISINOPRIL 2.5MG TABLET PO SCH (09:54)
[2021-08-01] MEDS: TRAMADOL 50MG TABLET PO PRN (09:56)
[2021-08-01] MEDS: MAGNESIUM/ALUMINUM HYDROXIDE/SIMETHICONE 30ML UDC PO PRN (09:58)
[2021-08-01] MEDS: LACTULOSE 20G/30ML UDC PO PRN (09:58)
[2021-08-01] MEDS: HYDROCODONE/ACETAMINOPHEN 5/325MG TABLET PO PRN (12:31)
[2021-08-01] MEDS: ONDANSETRON HCL 4MG TABLET PO PRN (18:03)
[2021-08-01 20:00] VITALS: BP 147/66
[2021-08-01] MEDS: FAMOTIDINE 20MG TABLET PO SCH (20:43)
[2021-08-01] MEDS: ATORVASTATIN CALCIUM 20MG TABLET PO SCH (20:44)
[2021-08-02 08:00] VITALS: BP 132/68
[2021-08-02] MEDS: GENTAMICIN 0.3% OPHTH DROPS 5ML EACHEYE SCH ×4 (08:38→21:44)
[2021-08-02] MEDS: LISINOPRIL 2.5MG TABLET PO SCH (08:39)
[2021-08-02] MEDS: APIXABAN 2.5 MG TABLET PO SCH ×2 (08:39→16:11)
[2021-08-02] MEDS: FUROSEMIDE 40MG TABLET PO SCH (08:39)
[2021-08-02] MEDS: CARVEDILOL 3.125 MG TABLET PO SCH ×2 (08:39→21:00)
[2021-08-02] MEDS: GABAPENTIN 100MG CAPSULE PO SCH ×2 (08:39→16:11)
[2021-08-02 09:06] LABS: BASOPHILS % 0.7 % (0.0-2.0); EOSINOPHILS % 4.6 % (0.0-5.0); HEMATOCRIT. 25.8 % (36.0-48.0); HEMOGLOBIN. 8.6 g/dL (12.0-16.0); LYMPHOCYTES % 26.1 % (20.0-50.0); MEAN CORPUSCULAR HEMOGLOBIN 30.2 pg (28.0-32.0); MEAN CORPUSCULAR VOLUME 90.2 fL (81.0-99.0); MEAN PLATELET VOLUME 8.3 fl (7.4-10.4); MONOCYTES % 9.5 % (2.0-8.0); NEUTROPHILS % 59.1 % (40.0-76.0); PLATELET 260 x1000/uL (130-400); RED BLOOD CELL COUNT 2.87 mill/uL (4.2-5.4); RED CELL DISTRIBUTION WIDTH 17.4 % (11.6-14.6)
[2021-08-02 09:10] LABS: CHLORIDE 105 mEq/L (98-107)
[2021-08-02 20:00] VITALS: BP 101/43
[2021-08-02] MEDS: ATORVASTATIN CALCIUM 20MG TABLET PO SCH (21:44)
[2021-08-02] MEDS: FAMOTIDINE 20MG TABLET PO SCH (21:44)
[2021-08-03 07:50] VITALS: BP 110/51
[2021-08-03] MEDS: GENTAMICIN 0.3% OPHTH DROPS 5ML EACHEYE SCH ×4 (09:00→21:16)
[2021-08-03] MEDS: LISINOPRIL 2.5MG TABLET PO SCH (09:00)
[2021-08-03] MEDS: CARVEDILOL 3.125 MG TABLET PO SCH ×2 (09:00→21:00)
[2021-08-03] MEDS: APIXABAN 2.5 MG TABLET PO SCH ×2 (09:11→17:36)
[2021-08-03] MEDS: FUROSEMIDE 40MG TABLET PO SCH (09:11)
[2021-08-03] MEDS: GABAPENTIN 100MG CAPSULE PO SCH ×2 (09:11→17:36)
[2021-08-03] MEDS ORDERED: CLONIDINE 0.1MG TABLET PO PRN (15:47)
[2021-08-03 20:00] VITALS: BP 101/40
[2021-08-03] MEDS: FAMOTIDINE 20MG TABLET PO SCH (21:16)
[2021-08-03] MEDS: ATORVASTATIN CALCIUM 20MG TABLET PO SCH (21:16)
[2021-08-04 08:20] VITALS: BP 139/81
[2021-08-04] MEDS: CARVEDILOL 3.125 MG TABLET PO SCH ×2 (08:29→21:09)
[2021-08-04] MEDS: GABAPENTIN 100MG CAPSULE PO SCH ×2 (08:29→17:57)
[2021-08-04] MEDS: APIXABAN 2.5 MG TABLET PO SCH ×2 (08:30→17:57)
[2021-08-04] MEDS: GENTAMICIN 0.3% OPHTH DROPS 5ML EACHEYE SCH ×4 (08:30→21:09)
[2021-08-04] MEDS: LISINOPRIL 2.5MG TABLET PO SCH (08:30)
[2021-08-04] MEDS: FUROSEMIDE 40MG TABLET PO SCH (08:30)
[2021-08-04 10:34] LABS: BASOPHILS % 0.7 % (0.0-2.0); EOSINOPHILS % 3.2 % (0.0-5.0); HEMATOCRIT. 32.5 % (36.0-48.0); HEMOGLOBIN. 10.5 g/dL (12.0-16.0); LYMPHOCYTES % 18.8 % (20.0-50.0); MEAN CORPUSCULAR HEMOGLOBIN 29.7 pg (28.0-32.0); MEAN CORPUSCULAR VOLUME 92.1 fL (81.0-99.0); MEAN PLATELET VOLUME 8.7 fl (7.4-10.4); MONOCYTES % 9.2 % (2.0-8.0); NEUTROPHILS % 68.1 % (40.0-76.0); PLATELET 267 x1000/uL (130-400); RED BLOOD CELL COUNT 3.53 mill/uL (4.2-5.4); RED CELL DISTRIBUTION WIDTH 18.4 % (11.6-14.6)
[2021-08-04 20:00] VITALS: BP 129/60
[2021-08-04] MEDS: FAMOTIDINE 20MG TABLET PO SCH (21:09)
[2021-08-04] MEDS: ATORVASTATIN CALCIUM 20MG TABLET PO SCH (21:09)
[2021-08-05 08:00] VITALS: BP 125/72
[2021-08-05] MEDS: APIXABAN 2.5 MG TABLET PO SCH ×2 (08:40→16:57)
[2021-08-05] MEDS: LISINOPRIL 2.5MG TABLET PO SCH (08:41)
[2021-08-05] MEDS: GABAPENTIN 100MG CAPSULE PO SCH ×2 (08:41→16:57)
[2021-08-05] MEDS: GENTAMICIN 0.3% OPHTH DROPS 5ML EACHEYE SCH ×4 (08:41→20:46)
[2021-08-05] MEDS: CARVEDILOL 3.125 MG TABLET PO SCH ×2 (08:41→20:47)
[2021-08-05] MEDS: FUROSEMIDE 40MG TABLET PO SCH (08:41)
[2021-08-05] MEDS: ACETAMINOPHEN 325MG TABLET PO PRN (16:57)
[2021-08-05 20:00] VITALS: BP 118/77
[2021-08-05] MEDS: ATORVASTATIN CALCIUM 20MG TABLET PO SCH (20:46)
[2021-08-05] MEDS: FAMOTIDINE 20MG TABLET PO SCH (20:46)
[2021-08-06 08:00] VITALS: BP 167/77
[2021-08-06] MEDS: APIXABAN 2.5 MG TABLET PO SCH (09:03)
[2021-08-06] MEDS: CARVEDILOL 3.125 MG TABLET PO SCH (09:03)
[2021-08-06] MEDS: FUROSEMIDE 40MG TABLET PO SCH (09:03)
[2021-08-06] MEDS: GABAPENTIN 100MG CAPSULE PO SCH (09:03)
[2021-08-06] MEDS: LISINOPRIL 2.5MG TABLET PO SCH (09:04)
[2021-08-06 09:40] LABS: BASOPHILS % 0.5 % (0.0-2.0); EOSINOPHILS % 2.6 % (0.0-5.0); HEMATOCRIT. 28.6 % (36.0-48.0); HEMOGLOBIN. 9.7 g/dL (12.0-16.0); LYMPHOCYTES % 13.8 % (20.0-50.0); MEAN CORPUSCULAR HEMOGLOBIN 30.6 pg (28.0-32.0); MEAN CORPUSCULAR VOLUME 89.8 fL (81.0-99.0); MEAN PLATELET VOLUME 8.3 fl (7.4-10.4); MONOCYTES % 9.2 % (2.0-8.0); NEUTROPHILS % 73.9 % (40.0-76.0); PLATELET 293 x1000/uL (130-400); RED BLOOD CELL COUNT 3.18 mill/uL (4.2-5.4); RED CELL DISTRIBUTION WIDTH 17.6 % (11.6-14.6)
[2021-08-06] MEDS: ACETAMINOPHEN 325MG TABLET PO PRN (12:06)
[2021-08-06 13:45] VITALS: BP 135/82
== END 2021-08-06 16:00 | disposition home health service (06) | DRG 280 ==
PROVIDERS: ADMIT Psychiatry & Neurology Neurology; ATTEND Internal Medicine
DX: I11.0 Hypertensive heart disease with heart failure (principal); I50.43 Acute on chronic combined systolic (congestive) and diastolic (congestive) heart failure; I21.4 Non-ST elevation (NSTEMI) myocardial infarction; E43 Unspecified severe protein-calorie malnutrition; N17.9 Acute kidney failure, unspecified; I82.432 Acute embolism and thrombosis of left popliteal vein; G93.49 Other encephalopathy; I42.0 Dilated cardiomyopathy; I27.20 Pulmonary hypertension, unspecified; D64.9 Anemia, unspecified; E78.5 Hyperlipidemia, unspecified; F03.90 Unspecified dementia, unspecified severity, without behavioral disturbance, psychotic disturbance, mood disturbance, and anxiety; H54.61 Unqualified visual loss, right eye, normal vision left eye; I08.1 Rheumatic disorders of both mitral and tricuspid valves; I25.10 Atherosclerotic heart disease of native coronary artery without angina pectoris; M19.90 Unspecified osteoarthritis, unspecified site; J44.9 Chronic obstructive pulmonary disease, unspecified; I87.2 Venous insufficiency (chronic) (peripheral); I73.9 Peripheral vascular disease, unspecified; R32 Unspecified urinary incontinence; S40.021A Contusion of right upper arm, initial encounter; R62.7 Adult failure to thrive; S90.32XA Contusion of left foot, initial encounter; S90.31XA Contusion of right foot, initial encounter; E78.00 Pure hypercholesterolemia, unspecified; I25.5 Ischemic cardiomyopathy; R25.1 Tremor, unspecified; R04.0 Epistaxis; Z86.711 Personal history of pulmonary embolism; Z87.891 Personal history of nicotine dependence; Z86.718 Personal history of other venous thrombosis and embolism; Z95.0 Presence of cardiac pacemaker; Z79.01 Long term (current) use of anticoagulants; Z91.81 History of falling; Z68.28 Body mass index [BMI] 28.0-28.9, adult
CPT/HCPCS: 36415; 73060; 73090; 73521; 73560; 80048; 80053; 84484; 85025; 85027; 92523; 93005; 93970; 97110; 97116; 97162; 97166; 97530; 97535; 97542; Q0162

== ENCOUNTER 2021-09-21 15:52 | Emergency (ER) | payer MEDICARE, OTHER, MEDICAID ==
[~2021-09-21] VITALS: Ht 172.7 cm; Wt 68.0 kg
[2021-09-21 18:31] LABS: CLARITY URINE CLOUDY (CLEAR); COLOR URINE YELLOW (YELLOW); KETONES URINE NEGATIVE (NEGATIVE); LEUKOCYTE ESTERASE URINE 1+ (NEGATIVE); NITRITE URINE NEGATIVE (NEGATIVE); OCCULT BLOOD URINE NEGATIVE (NEGATIVE); PROTEIN URINE 2+ (NEGATIVE); SPECIFIC GRAVITY URINE 1.016 (1.005-1.030)
[2021-09-21 19:17] LABS: BASOPHILS % 0.9 % (0.0-2.0); EOSINOPHILS % 1.6 % (0.0-5.0); MEAN CORPUSCULAR VOLUME 87.1 fL (81.0-99.0); MEAN PLATELET VOLUME 8.5 fl (7.4-10.4); MONOCYTES % 10.1 % (2.0-8.0); NEUTROPHILS % 70.4 % (40.0-76.0); PLATELET 205 x1000/uL (130-400); RED BLOOD CELL COUNT 3.78 mill/uL (4.2-5.4); RED CELL DISTRIBUTION WIDTH 16.2 % (11.6-14.6)
[2021-09-21 19:30] LABS: CHLORIDE 107 mEq/L (98-107)
[2021-09-21] MEDS ORDERED: CEPH500C2 MT (22:33)
[2021-09-21] MEDS ORDERED: CEPHALEXIN 250MG CAPSULE PO NR (23:00)
[2021-09-22 12:19] VITALS: BP 141/78
== END 2021-09-22 12:22 | disposition admitted as inpatient to this hospital (09) ==
LOC: ER 15:52
DX: N39.0 Urinary tract infection, site not specified (principal); I11.0 Hypertensive heart disease with heart failure; I50.9 Heart failure, unspecified; E78.00 Pure hypercholesterolemia, unspecified; J44.9 Chronic obstructive pulmonary disease, unspecified; I25.2 Old myocardial infarction; F03.90 Unspecified dementia, unspecified severity, without behavioral disturbance, psychotic disturbance, mood disturbance, and anxiety; Z90.710 Acquired absence of both cervix and uterus; Z95.0 Presence of cardiac pacemaker; Z90.49 Acquired absence of other specified parts of digestive tract; Z98.890 Other specified postprocedural states; F17.200 Nicotine dependence, unspecified, uncomplicated; Z79.899 Other long term (current) drug therapy; Z88.0 Allergy status to penicillin
CPT/HCPCS: 36415; 71045; 80053; 81003; 83880; 84484; 85025; 93005; 99285

== ENCOUNTER 2021-12-28 22:45 | Inpatient (IN) | payer MEDICARE, OTHER, MEDICAID ==
[~2021-12-28] VITALS: Ht 170.2 cm; Wt 65.3 kg
[2021-12-28 22:45] VITALS: BP 116/87
[~2021-12-28 22:45] MED LIST changes: +APIX2.5T PO; +ATOR20TA65 PO; +CARV3.1242 PO; +CEPH500C2 MT; +FURO40TA5 PO; +GABA-529 PO
[2021-12-29] MEDS ORDERED: DIPHENHYDRAMINE 50MG/ML VIAL IV PRN (01:00)
[2021-12-29] MEDS ORDERED: ZOLPIDEM TARTRATE 5MG TABLET PO PRN (01:00)
[2021-12-29] MEDS ORDERED: ONDANSETRON HCL 4MG/2ML INJ IV PRN (01:00)
[2021-12-29] MEDS ORDERED: ACETAMINOPHEN 650MG/20.3ML UDC PO PRN (01:00)
[2021-12-29] MEDS ORDERED: CLONIDINE 0.1MG TABLET PO PRN (01:00)
[2021-12-29] MEDS ORDERED: GUAIFENESIN 200MG/10ML SUGAR FREE UDC PO PRN (01:00)
[2021-12-29 06:40] LABS: BASOPHILS % 0.3 % (0.0-2.0); EOSINOPHILS % 0.6 % (0.0-5.0); HEMATOCRIT. 48.3 % (36.0-48.0); HEMOGLOBIN. 15.7 g/dL (12.0-16.0); LYMPHOCYTES % 14.4 % (20.0-50.0); MEAN CORPUSCULAR HEMOGLOBIN 28.4 pg (28.0-32.0); MEAN CORPUSCULAR VOLUME 87.4 fL (81.0-99.0); MONOCYTES % 9.4 % (2.0-8.0); NEUTROPHILS % 75.3 % (40.0-76.0); RED BLOOD CELL COUNT 5.53 mill/uL (4.2-5.4); RED CELL DISTRIBUTION WIDTH 21.9 % (11.6-14.6)
[2021-12-29 06:50] LABS: CHLORIDE 107 mEq/L (98-107)
[2021-12-29 07:50] VITALS: BP 119/79
[2021-12-29 08:35] LABS: MEAN PLATELET VOLUME 9.6 fl (7.4-10.4); PLATELET 113 x1000/uL (130-400)
[2021-12-29] MEDS ORDERED: FUROSEMIDE 40MG/4ML VIAL IVP SCH (09:00)
[2021-12-29] MEDS ORDERED: FUROSEMIDE 40MG TABLET PO SCH (09:00)
[2021-12-29] MEDS: ASPIRIN 81MG TABLET PO SCH (09:31)
[2021-12-29] MEDS: GABAPENTIN 100MG CAPSULE PO SCH ×2 (09:32→21:45)
[2021-12-29] MEDS: CARVEDILOL 6.25 MG TABLET PO SCH ×2 (09:33→21:00)
[2021-12-29] MEDS: ENOXAPARIN 30MG/0.3ML SYR SUBCUT SCH (09:35)
[2021-12-29 15:30] LABS: CREATINE KINASE 52 IU/L (26-192)
[2021-12-29 20:00] VITALS: BP 107/58
[2021-12-29] MEDS: FAMOTIDINE 20MG TABLET PO SCH (21:45)
[2021-12-29] MEDS: ATORVASTATIN CALCIUM 20MG TABLET PO SCH (21:45)
[2021-12-30 01:02] LABS: T4 FREE 1.47 ng/dL (0.76-1.46)
[2021-12-30 06:51] LABS: CHLORIDE 109 mEq/L (98-107)
[2021-12-30 06:58] LABS: PHOSPHORUS 2.6 mg/dL (2.5-4.9)
[2021-12-30 07:07] LABS: TOTAL IRON BINDING CAPACITY 286 ug/dL (250-450)
[2021-12-30 07:22] LABS: BASOPHILS % 0.4 % (0.0-2.0); EOSINOPHILS % 1.8 % (0.0-5.0); HEMATOCRIT. 38.7 % (36.0-48.0); HEMOGLOBIN. 12.9 g/dL (12.0-16.0); LYMPHOCYTES % 22.1 % (20.0-50.0); MEAN CORPUSCULAR HEMOGLOBIN 28.1 pg (28.0-32.0); MEAN CORPUSCULAR VOLUME 84.2 fL (81.0-99.0); MEAN PLATELET VOLUME 9.7 fl (7.4-10.4); MONOCYTES % 10.9 % (2.0-8.0); NEUTROPHILS % 64.8 % (40.0-76.0); PLATELET 109 x1000/uL (130-400); RED BLOOD CELL COUNT 4.59 mill/uL (4.2-5.4); RED CELL DISTRIBUTION WIDTH 21.6 % (11.6-14.6)
[2021-12-30 07:23] LABS: FOLIC ACID (FOLATE) SERUM 5.6 ng/mL (>5.38)
[2021-12-30 08:00] VITALS: BP 117/76
[2021-12-30] MEDS: ASPIRIN 81MG TABLET PO SCH (09:45)
[2021-12-30] MEDS: GABAPENTIN 100MG CAPSULE PO SCH ×2 (09:45→21:29)
[2021-12-30] MEDS: CARVEDILOL 6.25 MG TABLET PO SCH ×2 (09:45→21:00)
[2021-12-30] MEDS: LACTULOSE 20G/30ML UDC PO SCH ×3 (09:45→21:29)
[2021-12-30] MEDS: ENOXAPARIN 30MG/0.3ML SYR SUBCUT SCH (09:46)
[2021-12-30] MEDS ORDERED: DOCUSATE SODIUM 250MG CAPSULE PO SCH (10:00)
[2021-12-30] MEDS: DOCUSATE SODIUM SUGAR FREE 100MG/10ML UDC NG SCH (10:00)
[2021-12-30 20:00] VITALS: BP 98/76
[2021-12-30] MEDS: ATORVASTATIN CALCIUM 20MG TABLET PO SCH (21:29)
[2021-12-30] MEDS: FAMOTIDINE 20MG TABLET PO SCH (21:29)
[2021-12-30] MEDS ORDERED: NA PHOS,M-B/NA PHOS,DI-BA ENEMA 118ML PR SCH (22:15)
[2021-12-31 06:38] LABS: BASOPHILS % 0.4 % (0.0-2.0); HEMOGLOBIN. 12.1 g/dL (12.0-16.0); LYMPHOCYTES % 15.8 % (20.0-50.0); MEAN CORPUSCULAR HEMOGLOBIN 28.3 pg (28.0-32.0); MEAN CORPUSCULAR VOLUME 84.3 fL (81.0-99.0); MEAN PLATELET VOLUME 9.5 fl (7.4-10.4); MONOCYTES % 13.8 % (2.0-8.0); PLATELET 100 x1000/uL (130-400); RED BLOOD CELL COUNT 4.27 mill/uL (4.2-5.4); RED CELL DISTRIBUTION WIDTH 20.9 % (11.6-14.6)
[2021-12-31 08:00] VITALS: BP 116/65
[2021-12-31] MEDS: ASPIRIN 81MG TABLET PO SCH (10:09)
[2021-12-31] MEDS: DOCUSATE SODIUM SUGAR FREE 100MG/10ML UDC NG SCH (10:09)
[2021-12-31] MEDS: CARVEDILOL 6.25 MG TABLET PO SCH ×2 (10:10→20:53)
[2021-12-31] MEDS: GABAPENTIN 100MG CAPSULE PO SCH ×2 (10:10→20:53)
[2021-12-31] MEDS: ENOXAPARIN 30MG/0.3ML SYR SUBCUT SCH (10:11)
[2021-12-31 20:00] VITALS: BP 113/77
[2021-12-31] MEDS: ATORVASTATIN CALCIUM 20MG TABLET PO SCH (20:53)
[2021-12-31] MEDS: FAMOTIDINE 20MG TABLET PO SCH (20:53)
[2022-01-01] VITALS: BP 117/76
[2022-01-01 08:00] VITALS: BP 102/74
[2022-01-01 08:13] LABS: CLARITY URINE CLEAR (CLEAR); COLOR URINE DARK YELLOW (YELLOW); KETONES URINE TRACE (NEGATIVE); LEUKOCYTE ESTERASE URINE NEGATIVE (NEGATIVE); NITRITE URINE NEGATIVE (NEGATIVE); OCCULT BLOOD URINE NEGATIVE (NEGATIVE); PROTEIN URINE 2+ (NEGATIVE); SPECIFIC GRAVITY URINE 1.019 (1.005-1.030); UROBILINOGEN URINE 0.2 E.U./dL (0.2-1.0)
[2022-01-01] MEDS: GABAPENTIN 100MG CAPSULE PO SCH ×2 (09:47→20:25)
[2022-01-01] MEDS: CARVEDILOL 6.25 MG TABLET PO SCH ×2 (09:48→20:26)
[2022-01-01] MEDS: ASPIRIN 81MG TABLET PO SCH (09:48)
[2022-01-01] MEDS: ENOXAPARIN 30MG/0.3ML SYR SUBCUT SCH (09:49)
[2022-01-01] MEDS: DOCUSATE SODIUM SUGAR FREE 100MG/10ML UDC NG SCH (09:49)
[2022-01-01] MEDS: ACETAMINOPHEN 325MG TABLET PO PRN ×2 (10:28→11:28)
[2022-01-01 20:00] VITALS: BP 104/63
[2022-01-01] MEDS: ATORVASTATIN CALCIUM 20MG TABLET PO SCH (20:25)
[2022-01-01] MEDS: FAMOTIDINE 20MG TABLET PO SCH (20:25)
[2022-01-02 08:00] VITALS: BP 108/75
[2022-01-02] MEDS: CARVEDILOL 6.25 MG TABLET PO SCH ×2 (09:00→21:00)
[2022-01-02] MEDS: ENOXAPARIN 30MG/0.3ML SYR SUBCUT SCH (09:36)
[2022-01-02] MEDS: ASPIRIN 81MG TABLET PO SCH (09:36)
[2022-01-02] MEDS: GABAPENTIN 100MG CAPSULE PO SCH ×2 (09:36→21:42)
[2022-01-02] MEDS: DOCUSATE SODIUM SUGAR FREE 100MG/10ML UDC NG SCH (09:36)
[2022-01-02 09:41] LABS: HEMATOCRIT. 37.5 % (36.0-48.0); HEMOGLOBIN. 12.2 g/dL (12.0-16.0); MEAN CORPUSCULAR HEMOGLOBIN 27.9 pg (28.0-32.0); MEAN PLATELET VOLUME 9.4 fl (7.4-10.4); PLATELET 96 x1000/uL (130-400); RED BLOOD CELL COUNT 4.38 mill/uL (4.2-5.4); RED CELL DISTRIBUTION WIDTH 21.5 % (11.6-14.6)
[2022-01-02 09:43] LABS: MEAN CORPUSCULAR VOLUME 85.8 fL (81.0-99.0)
[2022-01-02] MEDS: LEVOFLOXACIN 250MG TABLET PO SCH (10:59)
[2022-01-02 15:09] LABS: PLATELET ESTIMATE DECREASED
[2022-01-02 20:00] VITALS: BP 108/69
[2022-01-02] MEDS: ATORVASTATIN CALCIUM 20MG TABLET PO SCH (21:41)
[2022-01-02] MEDS: FAMOTIDINE 20MG TABLET PO SCH (21:41)
[2022-01-03 06:02] LABS: HEMATOCRIT. 35.5 % (36.0-48.0); HEMOGLOBIN. 11.6 g/dL (12.0-16.0); MEAN CORPUSCULAR HEMOGLOBIN 27.8 pg (28.0-32.0); MEAN CORPUSCULAR VOLUME 84.6 fL (81.0-99.0); MEAN PLATELET VOLUME 9.2 fl (7.4-10.4); PLATELET 97 x1000/uL (130-400); RED BLOOD CELL COUNT 4.19 mill/uL (4.2-5.4); RED CELL DISTRIBUTION WIDTH 21.2 % (11.6-14.6)
[2022-01-03 07:49] VITALS: BP 114/75
[2022-01-03] MEDS: CARVEDILOL 6.25 MG TABLET PO SCH ×2 (08:59→21:00)
[2022-01-03] MEDS: ASPIRIN 81MG TABLET PO SCH (08:59)
[2022-01-03] MEDS: GABAPENTIN 100MG CAPSULE PO SCH (08:59)
[2022-01-03] MEDS: ENOXAPARIN 30MG/0.3ML SYR SUBCUT SCH (09:00)
[2022-01-03] MEDS: DOCUSATE SODIUM SUGAR FREE 100MG/10ML UDC NG SCH (09:00)
[2022-01-03] MEDS: LEVOFLOXACIN 250MG TABLET PO SCH (12:19)
[2022-01-03] MEDS ORDERED: IPRATROPIUM/ALBUTEROL 0.5-3(2.5)MG/3ML NEB HHN PRN (16:15)
[2022-01-03 17:12] LABS: BG BASE EXCESS 2.2 mmol/L (-2.0-2.0); BG CARBOXYHEMOGLOBIN 0.8 % (0.5-1.5); BG DEOXYHEMOGLOBIN 1.1 % (0.0-5.0); BG FRACTION INSPIRED OXYGEN 32; BG HCO3 ACT 25.6 mmol/L (22.0-26.0); BG METHEMOGLOBIN 0.4 % (0.0-1.5); BG OXYGEN SATURATION 98.9 % (92.0-98.5); BG OXYHEMOGLOBIN 97.7 % (94.0-97.0); BG PCO2 35.8 mmHg (35.0-45.0); BG PH 7.472 (7.350-7.450); BG PO2 141.9 mmHg (75.0-100.0); BG SAMPLE SITE RIGHT RADIAL; BG TOTAL HEMOGLOBIN 12.4 g/dL (12.0-18.0); BG VENT MODE NASAL CANNULA
[2022-01-03 18:18] LABS: PLATELET ESTIMATE DECREASED
[2022-01-03 20:00] VITALS: BP 100/59
[2022-01-03 22:00] VITALS: BP 108/66
[2022-01-03] MEDS: ATORVASTATIN CALCIUM 20MG TABLET PO SCH (22:52)
[2022-01-03] MEDS: FAMOTIDINE 20MG TABLET PO SCH (22:52)
[2022-01-04 05:50] LABS: HEMATOCRIT. 33.4 % (36.0-48.0); HEMOGLOBIN. 11.3 g/dL (12.0-16.0); MEAN CORPUSCULAR HEMOGLOBIN 28.5 pg (28.0-32.0); MEAN CORPUSCULAR VOLUME 84.3 fL (81.0-99.0); MEAN PLATELET VOLUME 9.1 fl (7.4-10.4); PLATELET 95 x1000/uL (130-400); RED BLOOD CELL COUNT 3.96 mill/uL (4.2-5.4); RED CELL DISTRIBUTION WIDTH 20.8 % (11.6-14.6)
[2022-01-04 06:15] LABS: PHOSPHORUS 1.7 mg/dL (2.5-4.9)
[2022-01-04 08:00] VITALS: BP 114/83
[2022-01-04 08:47] LABS: PLATELET ESTIMATE DECREASED
[2022-01-04] MEDS: ENOXAPARIN 30MG/0.3ML SYR SUBCUT SCH (09:00)
[2022-01-04] MEDS: ASPIRIN 81MG TABLET PO SCH (09:01)
[2022-01-04] MEDS: DOCUSATE SODIUM SUGAR FREE 100MG/10ML UDC NG SCH (09:02)
[2022-01-04] MEDS: CARVEDILOL 6.25 MG TABLET PO SCH ×2 (09:02→23:01)
[2022-01-04] MEDS ORDERED: FUROSEMIDE 40MG/4ML VIAL IVP SCH (09:30)
[2022-01-04] MEDS ORDERED: POTASSIUM PHOS,M-BASIC-D-BASIC 20 MMOL in DEXT 5% WATER 243.3333 ML IV NR (11:00)
[2022-01-04] MEDS: LEVOFLOXACIN 250MG TABLET PO SCH (11:35)
[2022-01-04] MEDS: FUROSEMIDE 40MG TABLET PO SCH (14:30)
[2022-01-04 20:00] VITALS: BP 139/78
[2022-01-04] MEDS: FAMOTIDINE 20MG TABLET PO SCH (23:00)
[2022-01-04] MEDS: ATORVASTATIN CALCIUM 20MG TABLET PO SCH (23:00)
[2022-01-04] MEDS: LACTULOSE 20G/30ML UDC PO SCH (23:00)
[2022-01-05] MEDS: LACTULOSE 20G/30ML UDC PO SCH ×3 (06:00→23:14)
[2022-01-05 08:00] VITALS: BP 110/71
[2022-01-05 08:01] LABS: PHOSPHORUS 2.5 mg/dL (2.5-4.9)
[2022-01-05 08:05] LABS: BASOPHILS % 0.7 % (0.0-2.0); EOSINOPHILS % 2.6 % (0.0-5.0); HEMATOCRIT. 37.1 % (36.0-48.0); HEMOGLOBIN. 12.1 g/dL (12.0-16.0); LYMPHOCYTES % 20.5 % (20.0-50.0); MEAN CORPUSCULAR HEMOGLOBIN 28.3 pg (28.0-32.0); MEAN CORPUSCULAR VOLUME 86.5 fL (81.0-99.0); MONOCYTES % 12.6 % (2.0-8.0); NEUTROPHILS % 63.6 % (40.0-76.0); RED BLOOD CELL COUNT 4.29 mill/uL (4.2-5.4)
[2022-01-05] MEDS: CARVEDILOL 6.25 MG TABLET PO SCH ×2 (08:55→23:15)
[2022-01-05] MEDS: DOCUSATE SODIUM SUGAR FREE 100MG/10ML UDC NG SCH (08:56)
[2022-01-05] MEDS: ASPIRIN 81MG TABLET PO SCH (08:56)
[2022-01-05] MEDS: FUROSEMIDE 40MG TABLET PO SCH (08:56)
[2022-01-05] MEDS: ENOXAPARIN 30MG/0.3ML SYR SUBCUT SCH (08:57)
[2022-01-05 10:54] LABS: PLATELET ESTIMATE SLIGHTLY DECREASED
[2022-01-05] MEDS: LEVOFLOXACIN 250MG TABLET PO SCH (12:51)
[2022-01-05 20:00] VITALS: BP 114/52
[2022-01-05] MEDS: ATORVASTATIN CALCIUM 20MG TABLET PO SCH (23:15)
[2022-01-05] MEDS: FAMOTIDINE 20MG TABLET PO SCH (23:18)
[2022-01-06] MEDS: LACTULOSE 20G/30ML UDC PO SCH ×3 (06:15→21:09)
[2022-01-06 07:43] VITALS: BP 109/69
[2022-01-06] MEDS: CARVEDILOL 6.25 MG TABLET PO SCH ×2 (09:00→21:09)
[2022-01-06] MEDS: ASPIRIN 81MG TABLET PO SCH (10:55)
[2022-01-06] MEDS: ENOXAPARIN 30MG/0.3ML SYR SUBCUT SCH (10:55)
[2022-01-06] MEDS: DOCUSATE SODIUM SUGAR FREE 100MG/10ML UDC NG SCH (10:55)
[2022-01-06] MEDS: LEVOFLOXACIN 250MG TABLET PO SCH (11:00)
[2022-01-06 16:08] VITALS: BP 108/71
[2022-01-06] MEDS: FUROSEMIDE 40MG/4ML VIAL IVP SCH (18:27)
[2022-01-06 20:00] VITALS: BP 114/65
[2022-01-06] MEDS: FAMOTIDINE 20MG TABLET PO SCH (21:09)
[2022-01-06] MEDS: ATORVASTATIN CALCIUM 20MG TABLET PO SCH (21:09)
[2022-01-07] MEDS: LACTULOSE 20G/30ML UDC PO SCH ×3 (05:56→20:14)
[2022-01-07] MEDS: FUROSEMIDE 40MG/4ML VIAL IVP SCH ×2 (05:57→17:31)
[2022-01-07 06:15] LABS: BASOPHILS % 0.5 % (0.0-2.0); EOSINOPHILS % 2.7 % (0.0-5.0); HEMATOCRIT. 33.6 % (36.0-48.0); HEMOGLOBIN. 11.1 g/dL (12.0-16.0); MEAN CORPUSCULAR HEMOGLOBIN 28.5 pg (28.0-32.0); MEAN CORPUSCULAR VOLUME 86.2 fL (81.0-99.0); MEAN PLATELET VOLUME 9.2 fl (7.4-10.4); MONOCYTES % 14.7 % (2.0-8.0); NEUTROPHILS % 61.1 % (40.0-76.0); PLATELET 97 x1000/uL (130-400); RED CELL DISTRIBUTION WIDTH 21.1 % (11.6-14.6)
[2022-01-07 08:00] VITALS: BP 95/63
[2022-01-07] MEDS: CARVEDILOL 6.25 MG TABLET PO SCH ×2 (09:00→20:14)
[2022-01-07] MEDS: ASPIRIN 81MG TABLET PO SCH (09:38)
[2022-01-07] MEDS: ENOXAPARIN 30MG/0.3ML SYR SUBCUT SCH (09:40)
[2022-01-07] MEDS: DOCUSATE SODIUM SUGAR FREE 100MG/10ML UDC NG SCH (11:54)
[2022-01-07] MEDS: POTASSIUM CHLORIDE 20MEQ TABLET SR PO SCH (13:05)
[2022-01-07] MEDS: LEVOFLOXACIN 250MG TABLET PO SCH (13:45)
[2022-01-07] MEDS ORDERED: LEVOFLOXACIN 250MG TABLET PO NR (14:00)
[2022-01-07 20:00] VITALS: BP 121/78
[2022-01-07] MEDS: FAMOTIDINE 20MG TABLET PO SCH (20:13)
[2022-01-07] MEDS: ATORVASTATIN CALCIUM 20MG TABLET PO SCH (20:13)
[2022-01-08] MEDS: FUROSEMIDE 40MG/4ML VIAL IVP SCH ×2 (05:00→17:58)
[2022-01-08 07:51] VITALS: BP 128/75
[2022-01-08] MEDS: DOCUSATE SODIUM SUGAR FREE 100MG/10ML UDC NG SCH (09:11)
[2022-01-08] MEDS: ASPIRIN 81MG TABLET PO SCH (09:12)
[2022-01-08] MEDS: CARVEDILOL 6.25 MG TABLET PO SCH ×2 (09:12→20:22)
[2022-01-08] MEDS: POTASSIUM CHLORIDE 20MEQ TABLET SR PO SCH (09:13)
[2022-01-08] MEDS: ENOXAPARIN 30MG/0.3ML SYR SUBCUT SCH (09:15)
[2022-01-08 14:08] LABS: 25-HYDROXY VITAMIN D3 12 ng/mL (.)
[2022-01-08 20:00] VITALS: BP 101/66
[2022-01-08] MEDS: FAMOTIDINE 20MG TABLET PO SCH (20:21)
[2022-01-08] MEDS: ATORVASTATIN CALCIUM 20MG TABLET PO SCH (20:21)
[2022-01-09] MEDS: FUROSEMIDE 40MG/4ML VIAL IVP SCH ×2 (05:22→19:02)
[2022-01-09 08:00] VITALS: BP 109/76
[2022-01-09] MEDS: CARVEDILOL 6.25 MG TABLET PO SCH ×2 (09:00→21:00)
[2022-01-09] MEDS ORDERED: ERGOCALCIFEROL 50000UNITS CAPSULE PO SCH (09:30)
[2022-01-09 09:55] LABS: BASOPHILS % 0.7 % (0.0-2.0); EOSINOPHILS % 1.8 % (0.0-5.0); LYMPHOCYTES % 24.3 % (20.0-50.0); MEAN CORPUSCULAR HEMOGLOBIN 28.3 pg (28.0-32.0); MEAN PLATELET VOLUME 8.7 fl (7.4-10.4); MONOCYTES % 13.6 % (2.0-8.0); NEUTROPHILS % 59.6 % (40.0-76.0); PLATELET 94 x1000/uL (130-400); RED BLOOD CELL COUNT 4.23 mill/uL (4.2-5.4); RED CELL DISTRIBUTION WIDTH 20.8 % (11.6-14.6)
[2022-01-09] MEDS: ASPIRIN 81MG TABLET PO SCH (09:58)
[2022-01-09] MEDS: DOCUSATE SODIUM SUGAR FREE 100MG/10ML UDC NG SCH (09:58)
[2022-01-09] MEDS: POTASSIUM CHLORIDE 20MEQ TABLET SR PO SCH (09:58)
[2022-01-09] MEDS: ENOXAPARIN 30MG/0.3ML SYR SUBCUT SCH (09:59)
[2022-01-09 20:00] VITALS: BP 106/69
[2022-01-09] MEDS: FAMOTIDINE 20MG TABLET PO SCH (21:45)
[2022-01-09] MEDS: ATORVASTATIN CALCIUM 20MG TABLET PO SCH (21:45)
[2022-01-10 07:27] LABS: BASOPHILS % 0.5 % (0.0-2.0); EOSINOPHILS % 0.4 % (0.0-5.0); HEMATOCRIT. 37.9 % (36.0-48.0); HEMOGLOBIN. 12.4 g/dL (12.0-16.0); LYMPHOCYTES % 22.7 % (20.0-50.0); MEAN CORPUSCULAR HEMOGLOBIN 28.4 pg (28.0-32.0); MEAN CORPUSCULAR VOLUME 86.4 fL (81.0-99.0); MEAN PLATELET VOLUME 8.9 fl (7.4-10.4); MONOCYTES % 11.1 % (2.0-8.0); NEUTROPHILS % 65.3 % (40.0-76.0); PLATELET 108 x1000/uL (130-400); RED BLOOD CELL COUNT 4.38 mill/uL (4.2-5.4); RED CELL DISTRIBUTION WIDTH 21.6 % (11.6-14.6)
[2022-01-10 08:00] VITALS: BP 121/67
[2022-01-10] MEDS: ENOXAPARIN 30MG/0.3ML SYR SUBCUT SCH (09:00)
[2022-01-10] MEDS: ASPIRIN 81MG TABLET PO SCH (09:00)
[2022-01-10] MEDS: FUROSEMIDE 40MG/4ML VIAL IVP SCH (09:00)
[2022-01-10] MEDS: DOCUSATE SODIUM SUGAR FREE 100MG/10ML UDC NG SCH (09:00)
[2022-01-10] MEDS: CARVEDILOL 6.25 MG TABLET PO SCH ×2 (09:01→23:29)
[2022-01-10 20:00] VITALS: BP 119/87
[2022-01-10] MEDS: FAMOTIDINE 20MG TABLET PO SCH (23:29)
[2022-01-10] MEDS: ATORVASTATIN CALCIUM 20MG TABLET PO SCH (23:29)
[2022-01-11 06:33] LABS: BASOPHILS % 0.3 % (0.0-2.0); EOSINOPHILS % 0.2 % (0.0-5.0); HEMATOCRIT. 41.8 % (36.0-48.0); HEMOGLOBIN. 13.8 g/dL (12.0-16.0); LYMPHOCYTES % 16.4 % (20.0-50.0); MEAN CORPUSCULAR HEMOGLOBIN 28.7 pg (28.0-32.0); MEAN PLATELET VOLUME 9.1 fl (7.4-10.4); MONOCYTES % 9.3 % (2.0-8.0); NEUTROPHILS % 73.8 % (40.0-76.0); PLATELET 127 x1000/uL (130-400); RED BLOOD CELL COUNT 4.81 mill/uL (4.2-5.4)
[2022-01-11 07:54] VITALS: BP 125/87
[2022-01-11] MEDS ORDERED: SODIUM POLYSTYRENE SULFONATE 15 G/60 ML BOT PO SCH (08:30)
[2022-01-11] MEDS: CARVEDILOL 6.25 MG TABLET PO SCH (09:03)
[2022-01-11] MEDS: ENOXAPARIN 30MG/0.3ML SYR SUBCUT SCH (09:03)
[2022-01-11] MEDS: DOCUSATE SODIUM SUGAR FREE 100MG/10ML UDC NG SCH (09:03)
[2022-01-11] MEDS: ASPIRIN 81MG TABLET PO SCH (09:03)
[2022-01-11] MEDS: FUROSEMIDE 40MG/4ML VIAL IVP SCH (11:02)
== END 2022-01-11 11:45 | DRG 40 ==
PROVIDERS: ADMIT Physical Medicine & Rehabilitation Spinal Cord Injury Medicine; ATTEND Internal Medicine
PROC: 4B02XSZ Measurement of Cardiac Pacemaker, External Approach (ICD-10-PCS; 2021-12-28)
PROC: 0JB70ZZ Excision of Back Subcutaneous Tissue and Fascia, Open Approach (ICD-10-PCS; principal; 2022-01-10)
DX: G92.8 Other toxic encephalopathy (principal); L89.153 Pressure ulcer of sacral region, stage 3; G82.50 Quadriplegia, unspecified; J18.9 Pneumonia, unspecified organism; N17.0 Acute kidney failure with tubular necrosis; I50.23 Acute on chronic systolic (congestive) heart failure; J96.01 Acute respiratory failure with hypoxia; I13.0 Hypertensive heart and chronic kidney disease with heart failure and stage 1 through stage 4 chronic kidney disease, or unspecified chronic kidney disease; I42.0 Dilated cardiomyopathy; J44.0 Chronic obstructive pulmonary disease with (acute) lower respiratory infection; N39.0 Urinary tract infection, site not specified; E44.0 Moderate protein-calorie malnutrition; I47.2 Ventricular tachycardia; D69.6 Thrombocytopenia, unspecified; E78.5 Hyperlipidemia, unspecified; E78.00 Pure hypercholesterolemia, unspecified; F03.90 Unspecified dementia, unspecified severity, without behavioral disturbance, psychotic disturbance, mood disturbance, and anxiety; F32.A Depression, unspecified; I08.1 Rheumatic disorders of both mitral and tricuspid valves; I25.10 Atherosclerotic heart disease of native coronary artery without angina pectoris; I25.5 Ischemic cardiomyopathy; I27.21 Secondary pulmonary arterial hypertension; I27.81 Cor pulmonale (chronic); N18.9 Chronic kidney disease, unspecified; R13.10 Dysphagia, unspecified; M19.90 Unspecified osteoarthritis, unspecified site; E55.9 Vitamin D deficiency, unspecified; I49.3 Ventricular premature depolarization; R26.9 Unspecified abnormalities of gait and mobility; R53.81 Other malaise; R55 Syncope and collapse; R79.89 Other specified abnormal findings of blood chemistry; R90.82 White matter disease, unspecified; Z79.01 Long term (current) use of anticoagulants; Z82.49 Family history of ischemic heart disease and other diseases of the circulatory system; Z86.718 Personal history of other venous thrombosis and embolism; Z87.891 Personal history of nicotine dependence; Z95.0 Presence of cardiac pacemaker; Z87.440 Personal history of urinary (tract) infections; Z88.0 Allergy status to penicillin; Z79.899 Other long term (current) drug therapy
CPT/HCPCS: 36415; 36600; 71045; 76770; 80048; 80053; 81003; 82040; 82140; 82306; 82375; 82550; 82607; 82728; 82746; 82805; 83540; 83550; 83735; 84100; 84134; 84439; 84443; 84481; 85025; 87426; 92523; 92610; 93970; 97110; 97112; 97116; 97162; 97166; 97530; 97535; A4565; A6261; C1893; J1650; J1940; J3490; J7060